=== PATIENT | male | born 1975 | race African-American/Black ===

== ENCOUNTER 2018-12-10 12:50 | Inpatient (IN) | payer BC ==
--- NOTE | 2018-12-10 14:43 | ER Document Report ---
ED Medical Screen (RME) - General Chief Complaint: Abdominal Pain Stated Complaint: ABDOMINAL PAIN Time Seen by Provider: 12/10/18 14:34 Primary Care Provider: HORTENCIA MONTALVO [Primary Care Provider] - Follow up as needed Notes: 33-year-old male presented to ED for right upper quadrant abdominal pain x3 days. He states he was nausea and vomiting on Monday but is not eating anything since then and has not had any vomiting or bowel movement since then. He states he has a history of diabetes type 2 . States he does smoke a half a pack occasionally drinks and smokes pot occasionally. I have greeted and performed a rapid initial assessment of this patient. A comprehensive ED assessment and evaluation of the patient, analysis of test results and completion of medical decision making process will be conducted by an additional ED providers. Dictation of this chart was performed using voice recognition software; therefore, there may be some unintended grammatical errors. TRAVEL OUTSIDE OF THE [place] IN LAST 30 DAYS: No Physical Exam - Vital signs Vitals: Temp Pulse Resp BP Pulse Ox 99.2 F 95 16 113/69 98 12/10/18 13:11 12/10/18 13:11 12/10/18 13:11 12/10/18 13:11 12/10/18 13:11 Course - Vital Signs Vital signs: Temp Pulse Resp BP Pulse Ox 99.2 F 95 16 113/69 98 12/10/18 13:11 12/10/18 13:11 12/10/18 13:11 12/10/18 13:11 12/10/18 13:11 Doctor's Discharge - Discharge Referrals: HORTENCIA MONTALVO [Primary Care Provider] - Follow up as needed
[2018-12-10] MEDS ORDERED: KETOROLAC TROMETHAMINE INJ/PF 30 MG/1 ML SDV IV ONE (15:12)
[2018-12-10] MEDS ORDERED: NORMAL SALINE 1000 ML 1,000 ML IV ONE (15:12)
--- NOTE | 2018-12-10 15:31 | RADIOLOGY REPORT (SQ) ---
EXAM DESCRIPTION: U/S ABDOMEN LTD W/DOPPLER COMPLETED DATE/TIME: 12/10/2018 3:21 pm REASON FOR STUDY: ruq abdominal pain COMPARISON: None. TECHNIQUE: Dynamic and static grayscale images acquired of the abdomen and recorded on PACS. Additio rene selected color Doppler and spectral images recorded. LIMITATIONS: None. FINDINGS: PANCREAS: No masses. Visualized pancreatic duct normal caliber. LIVER: No masses. Echotexture normal. LIVER VASCULATURE: Normal directional flow of the main portal vein and hepatic veins. GALLBLADDER: Gallstone(s). No pericholecystic fluid. No wall thickening. ULTRASOUND-DETECTED TORO'S SIGN: Negative. INTRAHEPATIC DUCTS AND COMMON DUCT: Common bile duct 9 mm. No intrahepatic biliary dilatation. INFERIOR VENA CAVA: Normal flow. AORTA: No aneurysm. RIGHT KIDNEY: Normal size. 1.5 cm cyst. No solid or suspicious masses. No hydronephrosis. No calcif ications. PERITONEAL AND RIGHT PLEURAL SPACE: No ascites or effusions. OTHER: No other significant findings. IMPRESSION: Cholelithiasis. Dilated common bile duct without visualized common bile duct stones. TECHNICAL DOCUMENTATION: JOB ID: [id number] [email or web address]- All Rights Reserved Reading location - IP/workstation name: [email or web address]
[2018-12-10] MEDS ORDERED: ONDANSETRON HCL INJ/PF 4 MG/2 ML SDV IV ONE (17:26)
--- NOTE | 2018-12-10 17:42 | ER Document Report ---
ED General - General Chief Complaint: Abdominal Pain Stated Complaint: ABDOMINAL PAIN Time Seen by Provider: 12/10/18 14:34 Primary Care Provider: HORTENCIA MONTALVO [NO LOCAL MD] - Follow up as needed TRAVEL OUTSIDE OF THE [place] IN LAST 30 DAYS: No - HPI Notes: Patient is a 43-year-old male that presents to the emergency department for chief complaint of right upper quadrant abdominal pain. Patient reports pain began 3 days ago and has been constant since onset. He states it seems to be getting gradually worse and is sharp in nature. He reports vomiting at onset of pain and has not had anything to eat over the last few days because he is scared he will vomit after eating. He states that the pain does get worse after drinking. He denies any radiation of his pain. He denies any relieving factors to his pain. Patient denies history of GERD or gallbladder issues in the past. He has not had any fevers or chills. Past Medical History: Diabetes Past Surgical History: Negative Social History: Daily tobacco. Occasional alcohol. Denies drug use Family History: Reviewed and noncontributory for presenting illness Allergies: Reviewed, see documented allergy list. REVIEW OF SYSTEMS: CONSTITUTIONAL : No fever No chills No diaphoresis No recent illness EENT: No vision changes No congestion No sore throat CARDIOVASCULAR: No chest pain No palpitations RESPIRATORY: No shortness of breath No cough No difficulty breathing GASTROINTESTINAL: abdominal pain nausea vomiting No diarrhea GENITOURINARY: No dysuria No hematuria No difficulty urinating MUSCULOSKELETAL: No back pain No leg pain No arm pain SKIN: No rashes No lesions LYMPHATIC: No swollen, enlarged glands. NEUROLOGICAL: No lightheadedness No headache No weakness No paresthesias PSYCHIATRIC: No anxiety No depression PHYSICAL EXAMINATION: Vital signs reviewed, nursing noted reviewed. GENERAL: Appears uncomfortable, well-nourished and in no acute distress. HEAD: Atraumatic, normocephalic. EYES: Eyes appear normal, extraocular movements intact, sclera anicteric, conjunctiva are normal. ENT: nares patent, oropharynx clear without exudates. Moist mucous membranes. NECK: Normal range of motion, supple without lymphadenopathy LUNGS: Breath sounds clear to auscultation bilaterally and equal. No wheezes rales or rhonchi. HEART: Regular rate and rhythm without murmurs ABDOMEN: Soft, right upper quadrant tenderness, positive Dietz sign, nor moactive bowel sounds. No rebound, guarding, or rigidity. No masses appreciated. EXTREMITIES: Nontender, good range of motion, no pitting or edema. NEUROLOGICAL: No focal neurological deficits. Moves all extremities spontaneously Motor and sensory grossly intact on exam. PSYCH: Normal mood, normal affect. SKIN: Warm, Dry, normal turgor, no rashes or lesions noted on exposed skin - Related Data Allergies/Adverse Reactions: avocado Allergy (Verified 12/10/18 17:03) banana Allergy (Verified 12/10/18 17:03) tropical fruit Allergy (Uncoded 12/10/18 17:03) Past Medical History - Social History Smoking Status: Current Every Day Smoker Frequency of alcohol use: Occasional Drug Abuse: Cocaine Family History: Reviewed & Not Pertinent Patient has suicidal ideation: No Patient has homicidal ideation: No Endocrine Medical History: Reports: Hx Diabetes Mellitus Type 2 - unmedicated Renal/ Medical History: Denies: Hx Peritoneal Dialysis Physical Exam - Vital signs Vitals: Temp Pulse Resp BP Pulse Ox 99.2 F 95 16 113/69 98 12/10/18 13:11 12/10/18 13:11 12/10/18 13:11 12/10/18 13:11 12/10/18 13:11 Course - Re-evaluation Re-evalutation: 12/10/18 17:42 Vitals reviewed. Nursing notes reviewed. Patient appears uncomfortable but did have symptomatic relief after Toradol. He does not want any further pain medication currently. He has been given fluids and Zofran for symptom medic management as well. Ultrasound shows cholelithiasis with ductal dilation however there is no stone visualized in the duct. He has no acute cholecystitis on ultrasound. Blood work is currently pending. 12/10/18 20:41 Patients care discussed with Dr. Siegel who states patient is requiring ERCP given his ductal dilation and elevated total bilirubin. He recommends transfer to outside facility. Care discussed with [facility] who is not currently excepting nonemergent patients. Patient care was then directed to Mo[facility] and I am currently awaiting a callback from their physician. Patient's pain is controlled at this time. He will be started on maintenance fluids and will remain n.p.o. Laboratory 12/10/18 12/10/18 12/10/18 16:33 16:33 19:00 WBC 14.8 H RBC 5.15 Hgb 15.6 Hct 46.3 MCV 90 MCH 30.2 MCHC 33.6 RDW 12.4 Plt Count 353 Seg Neutrophils % 82.7 H Lymphocytes % 6.5 L Monocytes % 9.9 Eosinophils % 0.8 Basophils % 0.1 Absolute Neutrophils 12.3 H Absolute Lymphocytes 1.0 Absolute Monocytes 1.5 H Absolute Eosinophils 0.1 Absolute Basophils 0.0 Sodium 136.6 L Potassium 4.1 Chloride 92 L Carbon Dioxide 30 Anion Gap 15 BUN 14 Creatinine 0.73 Est GFR ( Amer) > 60 Est GFR (Non-Af Amer) > 60 Glucose 239 H Calcium 9.6 Total Bilirubin 3.4 H Direct Bilirubin 0.9 H Neonat Total Bilirubin Not Reportable Neonat Direct Bilirubin Not Reportable Neonat Indirect Bili Not Reportable AST 35 ALT 45 Alkaline Phosphatase 134 H Total Protein 8.1 Albumin 4.4 Lipase 34.3 Urine Color ADINA Urine Appearance CLOUDY Urine pH 5.0 Ur Specific [place] 1.031 Urine Protein 30 H Urine Glucose (UA) >=500 H Urine Ketones 20 H Urine Blood NEGATIVE Urine Nitrite NEGATIVE Urine Bilirubin NEGATIVE Urine Urobilinogen 4.0 H Ur Leukocyte Esterase NEGATIVE Urine WBC (Auto) 5 Urine RBC (Auto) 3 Squamous Epi Cells Auto 3 Urine Mucus (Auto) MANY Urine Ascorbic Acid NEGATIVE Abdomen Ultrasound 12/10/18 14:35 IMPRESSION: Cholelithiasis. Dilated common bile duct without visualized common bile duct stones. 12/10/18 21:09 Patient's care was discussed with Dr. Adina Mary at [facility] who has accepted transfer and admission. - Vital Signs Vital signs: Temp Pulse Resp BP Pulse Ox 99.2 F 95 16 113/69 98 12/10/18 13:11 12/10/18 13:11 12/10/18 13:11 12/10/18 13:11 12/10/18 13:11 - Laboratory Result Diagrams: 12/10/18 16:33 12/10/18 16:33 Laboratory results interpreted by me: 12/10/18 12/10/18 12/10/18 16:33 16:33 19:00 WBC 14.8 H Seg Neutrophils % 82.7 H Lymphocytes % 6.5 L Absolute Neutrophils 12.3 H Absolute Monocytes 1.5 H Sodium 136.6 L Chloride 92 L Glucose 239 H Total Bilirubin 3.4 H Direct Bilirubin 0.9 H Alkaline Phosphatase 134 H Urine Protein 30 H Urine Glucose (UA) >=500 H Urine Ketones 20 H Urine Urobilinogen 4.0 H Discharge - Discharge Clinical Impression: Total bilirubin, elevated, RUQ abdominal pain Cholelithiasis Qualifiers: Cholelithiasis location: gallbladder Cholecystitis presence: without cholecystitis Biliary obstruction: without biliary obstruction Qualified Code(s): K80.20 - Calculus of gallbladder without cholecystitis without obstruction Condition: Stable Disposition: [facility] Referrals: LOCALMD,NO [NO LOCAL MD] - Follow up as needed
[2018-12-10 18:04] LABS: ABSOLUTE EOSINOPHILS # (AUTO) 0.1 10^3/uL (0.0-0.6); ABSOLUTE MONOCYTES (AUTO) 1.5 10^3/uL (0.1-1.4); ABSOLUTE NEUT (AUTO) 12.3 10^3/uL (1.7-8.2); BASOPHILS % (AUTO) 0.1 % (0-2); EOSINOPHILS % (AUTO) 0.8 % (0-6); HEMATOCRIT 46.3 % (37.9-51.0); HEMOGLOBIN 15.6 g/dL (13.5-17.0); LYMPHOCYTES % (AUTO) 6.5 % (13-45); MEAN CORPUSCULAR HEMOGLOBIN 30.2 pg (27.0-33.4); MEAN CORPUSCULAR HGB CONC 33.6 g/dL (32.0-36.0); MEAN CORPUSCULAR VOLUME 90 fl (80-97); MONOCYTES % (AUTO) 9.9 % (3-13); PLATELET COUNT 353 10^3/uL (150-450); RED BLOOD COUNT 5.15 10^6/uL (4.35-5.55); RED CELL DISTRIBUTION WIDTH 12.4 % (11.5-14.0); SEGMENTED NEUTROPHILS % (AUTO) 82.7 % (42-78); TOTAL CELLS COUNTED % (AUTO) 100 %; WHITE BLOOD COUNT 14.8 10^3/uL (4.0-10.5)
[2018-12-10 18:23] LABS: ALANINE AMINOTRANSFERASE 45 U/L (21-72); ALBUMIN 4.4 g/dL (3.5-5.0); ALKALINE PHOSPHATASE 134 U/L (38-126); ANION GAP 15 (5-19); ASPARTATE AMINO TRANSFERASE 35 U/L (17-59); BILIRUBIN,DIRECT 0.9 mg/dL (0.0-0.4); BILIRUBIN,TOTAL 3.4 mg/dL (0.2-1.3); BLOOD UREA NITROGEN 14 mg/dL (7-20); CALCIUM 9.6 mg/dL (8.4-10.2); CARBON DIOXIDE 30 mmol/L (22-30); CHLORIDE 92 mmol/L (98-107); GLUCOSE 239 mg/dL (75-110); LIPASE 34.3 U/L (23-300); POTASSIUM 4.1 mmol/L (3.6-5.0); SODIUM 136.6 mmol/L (137-145); TOTAL PROTEIN 8.1 g/dL (6.3-8.2)
[2018-12-10 19:52] LABS: APPEARANCE,URINE CLOUDY; BILIRUBIN,URINE NEGATIVE (NEGATIVE); COLOR,URINE AMBER; GLUCOSE, URINE >=500 mg/dL (NEGATIVE); KETONES,URINE 20 mg/dL (NEGATIVE); LEUKOCYTE ESTERASE,URINE NEGATIVE (NEGATIVE); NITRITE,URINE NEGATIVE (NEGATIVE); PROTEIN,URINE 30 mg/dL (NEGATIVE); URINE SPECIFIC GRAVITY 1.031
[2018-12-10] MEDS ORDERED: PIPERACILLIN/TAZOBACTAM 3.375 GM VIAL IV ONE (20:18)
[2018-12-10] MEDS ORDERED: NORMAL SALINE 1000 ML 2,000 ML IV ONE (20:43)
[2018-12-11] MEDS ORDERED: DEXTROSE 5%-1/2 NORMAL SALINE 1,000 ML IV ONE (10:08)
--- NOTE | 2018-12-11 10:27 | ER Document Report ---
ED General - General Chief Complaint: Abdominal Pain Stated Complaint: ABDOMINAL PAIN Time Seen by Provider: 12/10/18 14:34 Primary Care Provider: HORTENCIA MONTALVO [NO LOCAL MD] - Follow up as needed Notes: Patient has been in the ER now for quite some time. Set to be transferred for a ERCP. Patient states that he is hungry. His belly pain is mostly resolved. Review of his labs were performed. Since he has been in the ER for extended period of time I am repeating his labs. At this time I think patient would likely benefit from an MRCP versus transfer for an ERCP. In the event that the MRCP is positive then by all means we should proceed with the transfer however at this time I would like to repeat the labs and repeat the imaging studies as mentioned and proceed as planned. Review of systems: Constitutional: denies: Chills, Diaphoresis, Fever, Malaise, Weakness EENT: denies: Eye discharge, Blurred vision, Tearing, Double vision, Nose congestion, Nose discharge, Throat swelling, Mouth pain Cardiovascular: denies: Palpitations, Heart racing, Orthopnea, Dyspnea, Chest pain Respiratory: denies: Cough, Hurts to breathe, Wheezing, Shortness of breath Gastrointestinal: Complaining of epigastric and right upper quadrant abdominal pain. Nausea. Genitourinary: denies: Burning, Dysuria, Discharge, Frequency, Flank pain, Hematuria Musculoskeletal: denies: Joint pain, Joint swelling, Muscle pain, Muscle stiffness, back pain Hematologic/Lymphatic: denies: Anemia, Easy bleeding, Easy bruising, Blood clots Neurological/Psychological: denies: Confusion, Dementia, Depression, Loss of consciousness Skin: No lesions, no masses, no skin breakdown, no abscesses Physical exam: General: Alert no acute distress HEENT: Atraumatic, normocephalic, pupils equal round react to light and accommodation, extraocular muscles are intact, nose is non tender, posterior pharynx is without erythema or exudate. Tongue is unremarkable Heart: Heart with regular rate and rhythm, no murmurs, no rubs, no clicks Lungs: Lungs clear to auscultation bilaterally, no wheezes, rhonchi, rales Abdomen: Abdomen is soft, nontender, nondistended, normal bowel sounds Neuro: cranial nerves II through XII intact, reflexes intact, sensation intact, Extremities:Moving all extremities. Equal strength bilaterally in the upper lower extremities. No significant deformity Skin: No lesions. Skin intact Psych: Normal insight. Normal judgment Assessment and plan: 1. MRCP, repeat labs 2. Repeat labs are improving 3. If labs are improving, MRCP is negative then patient does not need to be transferred and will discharge with outpatient surgical follow-up. TRAVEL OUTSIDE OF THE [place] IN LAST 30 DAYS: No - Related Data Allergies/Adverse Reactions: avocado Allergy (Verified 12/10/18 17:03) banana Allergy (Verified 12/10/18 17:03) tropical fruit Allergy (Uncoded 12/10/18 17:03) Past Medical History - Social History Smoking Status: Current Every Day Smoker Frequency of alcohol use: Occasional Drug Abuse: Cocaine Family History: Reviewed & Not Pertinent Patient has suicidal ideation: No Patient has homicidal ideation: No Endocrine Medical History: Reports: Hx Diabetes Mellitus Type 2 - unmedicated Renal/ Medical History: Denies: Hx Peritoneal Dialysis Physical Exam - Vital signs Vitals: Temp Pulse Resp BP Pulse Ox 99.2 F 95 16 113/69 98 12/10/18 13:11 12/10/18 13:11 12/10/18 13:11 12/10/18 13:11 12/10/18 13:11 Course - Re-evaluation Re-evalutation: 12/11/18 14:12 MRCP results pending at time of signout at 1400. Patient signed over to Dr. Annmarie Howard for review of the MRCP results and transfer if still needed. More likely patient can be kept here as his bilirubin is trending down but will reconsult with surgery and disposition accordingly. I have ordered every 8 hours Zosyn to cover acute cholecystitis this is my more likely diagnosis. - Vital Signs Vital signs: Temp Pulse Resp BP Pulse Ox 98.4 F 79 16 102/55 L 100 12/11/18 07:07 12/11/18 07:07 12/11/18 07:07 12/11/18 07:07 12/11/18 07:07 - Laboratory Result Diagrams: 12/11/18 10:49 12/11/18 10:49 Laboratory results interpreted by me: 12/10/18 12/10/18 12/10/18 16:33 16:33 19:00 WBC 14.8 H Hgb Seg Neutrophils % 82.7 H Lymphocytes % 6.5 L Absolute Neutrophils 12.3 H Absolute Monocytes 1.5 H Sodium 136.6 L Chloride 92 L Glucose 239 H Total Bilirubin 3.4 H Direct Bilirubin 0.9 H Alkaline Phosphatase 134 H Albumin Urine Protein 30 H Urine Glucose (UA) >=500 H Urine Ketones 20 H Urine Urobilinogen 4.0 H 12/11/18 12/11/18 10:49 10:49 WBC 11.1 H Hgb 13.2 L D Seg Neutrophils % 79.4 H Lymphocytes % 8.7 L Absolute Neutrophils 8.8 H Absolute Monocytes Sodium Chloride Glucose 279 H Total Bilirubin 2.4 H Direct Bilirubin 0.5 H Alkaline Phosphatase 127 H Albumin 3.3 L Urine Protein Urine Glucose (UA) Urine Ketones Urine Urobilinogen Discharge - Discharge Clinical Impression: Total bilirubin, elevated, RUQ abdominal pain Cholelithiasis Qualifiers: Cholelithiasis location: gallbladder Cholecystitis presence: without cholecystitis Biliary obstruction: without biliary obstruction Qualified Code(s): K80.20 - Calculus of gallbladder without cholecystitis without obstruction Condition: Stable Disposition: [facility] [place] Referrals: LOCALMD,NO [NO LOCAL MD] - Follow up as needed
[2018-12-11 11:20] LABS: ABSOLUTE EOSINOPHILS # (AUTO) 0.3 10^3/uL (0.0-0.6); ABSOLUTE NEUT (AUTO) 8.8 10^3/uL (1.7-8.2); BASOPHILS % (AUTO) 0.4 % (0-2); EOSINOPHILS % (AUTO) 2.5 % (0-6); LYMPHOCYTES % (AUTO) 8.7 % (13-45); MEAN CORPUSCULAR HEMOGLOBIN 29.4 pg (27.0-33.4); MEAN CORPUSCULAR VOLUME 89 fl (80-97); PLATELET COUNT 276 10^3/uL (150-450); RED BLOOD COUNT 4.49 10^6/uL (4.35-5.55); RED CELL DISTRIBUTION WIDTH 12.3 % (11.5-14.0); SEGMENTED NEUTROPHILS % (AUTO) 79.4 % (42-78); TOTAL CELLS COUNTED % (AUTO) 100 %; WHITE BLOOD COUNT 11.1 10^3/uL (4.0-10.5)
[2018-12-11 11:30] LABS: HEMOGLOBIN 13.2 g/dL (13.5-17.0)
[2018-12-11 11:42] LABS: ALANINE AMINOTRANSFERASE 44 U/L (21-72); ALBUMIN 3.3 g/dL (3.5-5.0); ALKALINE PHOSPHATASE 127 U/L (38-126); ANION GAP 9 (5-19); ASPARTATE AMINO TRANSFERASE 29 U/L (17-59); BILIRUBIN,DIRECT 0.5 mg/dL (0.0-0.4); BILIRUBIN,TOTAL 2.4 mg/dL (0.2-1.3); BLOOD UREA NITROGEN 10 mg/dL (7-20); CALCIUM 8.8 mg/dL (8.4-10.2); CARBON DIOXIDE 30 mmol/L (22-30); CHLORIDE 100 mmol/L (98-107); GLUCOSE 279 mg/dL (75-110); LIPASE 99.8 U/L (23-300); POTASSIUM 3.6 mmol/L (3.6-5.0); SODIUM 138.5 mmol/L (137-145); TOTAL PROTEIN 6.3 g/dL (6.3-8.2)
[2018-12-11] MEDS ORDERED: PIPERACILLIN/TAZOBACTAM 3.375 GM VIAL IV SCH ×2 (14:15→17:45)
--- NOTE | 2018-12-11 14:48 | RADIOLOGY REPORT (SQ) ---
EXAM DESCRIPTION: MRI ABDOMEN WITHOUT COMPLETED DATE/TIME: 12/11/2018 2:09 pm REASON FOR STUDY: dilated CBD with elevated bili COMPARISON: Ultrasound from 1 day previously. TECHNIQUE: Noncontrast MRCP. Source and MIP images reviewed. LIMITATIONS: None. FINDINGS: GALLBLADDER: Distended but without pericholecystic fluid. Sizable gallstone within measur es at least 3 cm. INTRAHEPATIC DUCTS: Nondilated. EXTRAHEPATIC DUCTS: Common duct measures up to 8 mm. No stones or masses or strictures evident. PANCREAS: Generally homogeneous, no gross mass or significant signal alteration. No surrounding infl ammatory changes or fluid. Pancreatic duct is normal. LIVER, SPLEEN, KIDNEYS, ADRENALS: No significant abnormality. VESSELS: No evidence of aneurysm. Grossly appropriate flow voids in the major vascular structures. LUNG BASES: Grossly clear. OTHER: No other significant finding. IMPRESSION: 1. Cholelithiasis. 2. No evidence of choledocholithiasis. TECHNICAL DOCUMENTATION: JOB ID: [id number] [employer]- All Rights Reserved Reading location - IP/workstation name: [email or web address]
--- NOTE | 2018-12-11 16:46 | ER Document Report ---
Doctor's Note Notes: 12/11/18 16:45 Patient was seen and evaluated. He states his symptoms are significantly improved from yesterday. I reviewed blood work that was drawn this morning which shows improvement of his bilirubin as well as leukocytosis. Patient has been receiving his Zosyn which I believe is helping his symptoms. His abdomen i s still mildly tender in the right upper quadrant. MRCP was obtained this morning and shows cholelithiasis with no choledocholithiasis. I rediscussed his care with Dr. Siegel who will come evaluate him in the emergency room. We are still looking at a prolonged time for transfer to [facility]. Patient denies current needs and states pain is tolerable. 12/11/18 17:[address] Siegel who accepts patient for admission and plans to do cholecystectomy tomorrow. Patient in agreement with this plan of care.
--- NOTE | 2018-12-11 17:24 | PDOC H&P ---
History of Present Illness Admission Date/PCP: 12/12/18 Patient complains of: RUQ pain History of Present Illness: VIN CUENCA is a 43 year old male, healthy with a hx or RUQ pain. An US og the GB has been done and it is significant for mildly dilated CBC 8 mm, cholelithiasis, and no choledocholithiasis. An initial total bilirubin was 3.4 yesterday today is down to 2.4; similarly, the WBC was elevated yesterday 14K, down today to 11K. The reports improvement of the pain today. Past Medical History Endocrine Medical History: Reports: Diabetes Mellitus Type 2 - unmedicated Social History Smoking Status: Current Every Day Smoker Family History Family History: Reviewed & Not Pertinent Parental Family History Reviewed: No Children Family History Reviewed: No Sibling(s) Family History Reviewed.: No Medication/Allergy Allergies/Adverse Reactions: avocado Allergy (Verified 12/10/18 17:03) banana Allergy (Verified 12/10/18 17:03) tropical fruit Allergy (Uncoded 12/10/18 17:03) Physical Exam Vital Signs: Temp Pulse Resp BP Pulse Ox 98.4 F 79 16 102/55 L 100 12/11/18 07:07 12/11/18 07:07 12/11/18 07:07 12/11/18 07:07 12/11/18 07:07 Intake & Output 12/10/18 12/11/18 12/12/18 06:59 06:59 06:59 Intake Total 1000 2000 Balance 1000 2000 Weight 94.6 kg General appearance: PRESENT: no acute distress Head exam: PRESENT: atraumatic Eye exam: PRESENT: EOMI, PERRLA Mouth exam: PRESENT: moist, neck supple Neck exam: PRESENT: full ROM Respiratory exam: PRESENT: clear to auscultation alee Cardiovascular exam: PRESENT: RRR GI/Abdominal exam: PRESENT: soft, tenderness - RUQ Rectal exam: PRESENT: deferred Extremities exam: PRESENT: full ROM Musculoskeletal exam: PRESENT: full ROM Neurological exam: PRESENT: alert, altered Skin exam: PRESENT: warm Results Laboratory Results: 12/11/18 10:49 12/11/18 10:49 12/10/18 12/10/18 12/10/18 16:33 16:33 19:00 WBC 14.8 H RBC 5.15 Hgb 15.6 Hct 46.3 MCV 90 MCH 30.2 MCHC 33.6 RDW 12.4 Plt Count 353 Seg Neutrophils % 82.7 H Lymphocytes % 6.5 L Monocytes % 9.9 Eosinophils % 0.8 Basophils % 0.1 Absolute Neutrophils 12.3 H Absolute Lymphocytes 1.0 Absolute Monocytes 1.5 H Absolute Eosinophils 0.1 Absolute Basophils 0.0 Sodium 136.6 L Potassium 4.1 Chloride 92 L Carbon Dioxide 30 Anion Gap 15 BUN 14 Creatinine 0.73 Est GFR ( Amer) > 60 Est GFR (Non-Af Amer) > 60 Glucose 239 H Calcium 9.6 Total Bilirubin 3.4 H AST 35 ALT 45 Alkaline Phosphatase 134 H Total Protein 8.1 Albumin 4.4 Lipase 34.3 Urine Color ADINA Urine Appearance CLOUDY Urine pH 5.0 Ur Specific Levels 1.031 Urine Protein 30 H Urine Glucose (UA) >=500 H Urine Ketones 20 H Urine Blood NEGATIVE Urine Nitrite NEGATIVE Ur Leukocyte Esterase NEGATIVE Urine WBC (Auto) 5 Urine RBC (Auto) 3 12/11/18 12/11/18 10:49 10:49 WBC 11.1 H RBC 4.49 Hgb 13.2 L D Hct 40.0 MCV 89 MCH 29.4 MCHC 33.0 RDW 12.3 Plt Count 276 Seg Neutrophils % 79.4 H Lymphocytes % 8.7 L Monocytes % 9.0 Eosinophils % 2.5 Basophils % 0.4 Absolute Neutrophils 8.8 H Absolute Lymphocytes 1.0 Absolute Monocytes 1.0 Absolute Eosinophils 0.3 Absolute Basophils 0.0 Sodium 138.5 Potassium 3.6 Chloride 100 Carbon Dioxide 30 Anion Gap 9 BUN 10 Creatinine 0.54 Est GFR ( Amer) > 60 Est GFR (Non-Af Amer) > 60 Glucose 279 H Calcium 8.8 Total Bilirubin 2.4 H AST 29 ALT 44 Alkaline Phosphatase 127 H Total Protein 6.3 Albumin 3.3 L Lipase 99.8 Urine Color Urine Appearance Urine pH Ur Specific Levels Urine Protein Urine Glucose (UA) Urine Ketones Urine Blood Urine Nitrite Ur Leukocyte Esterase Urine WBC (Auto) Urine RBC (Auto) Impressions: Abdomen Ultrasound 12/10/18 14:35 IMPRESSION: Cholelithiasis. Dilated common bile duct without visualized common bile duct stones. Abdomen MRI 12/11/18 10:12 IMPRESSION: 1. Cholelithiasis. 2. No evidence of choledocholithiasis. Assessment & Plan - Diagnosis (1) Cholelithiasis Qualifiers: Cholelithiasis location: gallbladder Cholecystitis presence: without cholecystitis Biliary obstruction: without biliary obstruction Qualified Code(s): K80.20 - Calculus of gallbladder without cholecystitis without obstruction Is this a current diagnosis for this admission?: Yes (2) RUQ abdominal pain Is this a current diagnosis for this admission?: Yes (3) Total bilirubin, elevated Is this a current diagnosis for this admission?: Yes - Plan Summary Plan Summary: A/ Cholelithiasis, no choledocholithiasis despite elevation of total bilirubin Total bilirubin and WBC improved during past 24hr Slightly elevated Alk Phosph. US and MRCP demonstrate cholelithiasis only P/ Admit Clear liquid doiet NPO after midnight Plan laparoscopic cholecystectomy, possible open, possible cholangiogram tomorow Procedure risks, benefits, complications including bleeding from the liver and injury of the common bile duct which might require transfer to a tertiary center for open repa, he understands, and decides to proceed.
[2018-12-11] MEDS ORDERED: ONDANSETRON HCL INJ/PF 4 MG/2 ML SDV IV PRN (18:13)
[2018-12-11] MEDS ORDERED: DEXTROSE 50%-WATER 25 GM/50 ML DISP.SYRIN IV PRN ×2 (18:20)
[2018-12-11] MEDS ORDERED: GLUCAGON,HUMAN RECOMB 1 MG INJ SUBCUT PRN (18:20)
[2018-12-11] MEDS ORDERED: DEXTROSE 40% GEL 15 GM TUBE PO PRN ×2 (18:20)
[2018-12-11] MEDS: PIPERACILLIN SODIUM/TAZOBACTAM 3.375 GM in NORMAL SALINE 100 ML IV SCH (20:32)
[2018-12-11] MEDS: FAMOTIDINE INJ/PF 20 MG/2 ML SDV IV SCH (22:33)
[2018-12-12] MEDS: PIPERACILLIN SODIUM/TAZOBACTAM 3.375 GM in NORMAL SALINE 100 ML IV SCH ×4 (04:07→21:41)
[2018-12-12] MEDS: NORMAL SALINE 1000 ML 1,000 ML IV PRN ×2 (04:08→21:41)
[2018-12-12 06:09] LABS: ABSOLUTE EOSINOPHILS # (AUTO) 0.3 10^3/uL (0.0-0.6); ABSOLUTE LYMPHOCYTES (AUTO) 1.1 10^3/uL (0.5-4.7); ABSOLUTE MONOCYTES (AUTO) 1.3 10^3/uL (0.1-1.4); ABSOLUTE NEUT (AUTO) 9.5 10^3/uL (1.7-8.2); BASOPHILS % (AUTO) 0.3 % (0-2); EOSINOPHILS % (AUTO) 2.4 % (0-6); HEMATOCRIT 36.5 % (37.9-51.0); LYMPHOCYTES % (AUTO) 9.3 % (13-45); MEAN CORPUSCULAR HEMOGLOBIN 29.2 pg (27.0-33.4); MEAN CORPUSCULAR VOLUME 89 fl (80-97); MONOCYTES % (AUTO) 10.9 % (3-13); PLATELET COUNT 272 10^3/uL (150-450); RED BLOOD COUNT 4.12 10^6/uL (4.35-5.55); RED CELL DISTRIBUTION WIDTH 12.2 % (11.5-14.0); SEGMENTED NEUTROPHILS % (AUTO) 77.1 % (42-78); TOTAL CELLS COUNTED % (AUTO) 100 %; WHITE BLOOD COUNT 12.3 10^3/uL (4.0-10.5)
[2018-12-12 06:35] LABS: ALANINE AMINOTRANSFERASE 27 U/L (21-72); ALBUMIN 3.3 g/dL (3.5-5.0); ALKALINE PHOSPHATASE 102 U/L (38-126); ANION GAP 11 (5-19); ASPARTATE AMINO TRANSFERASE 13 U/L (17-59); BILIRUBIN,DIRECT 0.4 mg/dL (0.0-0.4); BILIRUBIN,TOTAL 1.8 mg/dL (0.2-1.3); BLOOD UREA NITROGEN 6 mg/dL (7-20); CALCIUM 8.6 mg/dL (8.4-10.2); CARBON DIOXIDE 25 mmol/L (22-30); CHLORIDE 101 mmol/L (98-107); GLUCOSE 263 mg/dL (75-110); POTASSIUM 4.1 mmol/L (3.6-5.0); SODIUM 137.4 mmol/L (137-145)
[2018-12-12] MEDS: FAMOTIDINE INJ/PF 20 MG/2 ML SDV IV SCH ×2 (09:52→22:52)
[2018-12-12] MEDS ORDERED: SUCCINYLCHOLINE CHLORIDE INJ 200 MG/10 ML VIAL ONE (13:30)
[2018-12-12] MEDS ORDERED: ROCURONIUM BROMIDE INJ 50 MG/5 ML VIAL IV ONE (13:30)
[2018-12-12] MEDS ORDERED: BUPIVACAINE HCL 0.25% /EPINEPHRINE INJ/PF 30 ML SDV ONE (13:56)
[2018-12-12] MEDS ORDERED: MIDAZOLAM 2 MG/2 ML INJ ONE (14:16)
[2018-12-12] MEDS ORDERED: FENTANYL CITRATE INJ/PF 100 MCG/2 ML AMPUL ONE (14:16)
[2018-12-12] MEDS ORDERED: PROPOFOL INJ 200 MG/20 ML VIAL IV ONE (14:16)
[2018-12-12] MEDS ORDERED: ONDANSETRON HCL INJ/PF 4 MG/2 ML SDV ONE (14:16)
[2018-12-12] MEDS ORDERED: DEXAMETHASONE SOD PHOSPHATE INJ 4 MG/1 ML VIAL ONE (14:16)
[2018-12-12] MEDS ORDERED: FENTANYL CITRATE INJ/PF 100 MCG/2 ML AMPUL IV PRN ×3 (15:10)
[2018-12-12] MEDS ORDERED: ONDANSETRON HCL INJ/PF 4 MG/2 ML SDV IV PRN (15:10)
[2018-12-12] MEDS ORDERED: MEPERIDINE HCL/PF INJ 25 MG/1 ML DISP.SYRIN IV PRN (15:10)
[2018-12-12] MEDS ORDERED: MORPHINE SULFATE 10 MG/ML INJ IV PRN (15:10)
[2018-12-12] MEDS ORDERED: OXYCODONE-ACETAMINOPHEN 5-325 MG TABLET PO PRN ×2 (15:10)
[2018-12-12] MEDS ORDERED: PROMETHAZINE HCL INJ 25 MG/1 ML VIAL IV PRN ×2 (15:10)
[2018-12-12] MEDS ORDERED: DIPHENHYDRAMINE HCL 50 MG/ML VIAL IV PRN (15:10)
[2018-12-12] MEDS: FENTANYL CITRATE INJ/PF 100 MCG/2 ML AMPUL ONE ×2 (17:05→17:10)
--- NOTE | 2018-12-12 18:09 | OPERATIVE REPORT E ---
Operative Report NAME: VIN CUENCA : 1975 AGE: 43Y DATE OF SURGERY: 12/12/2018 ROOM: 426 PREOPERATIVE DIAGNOSES: ACUTE CHOLECYSTITIS, CHOLELITHIASIS, AND ELEVATED LFTs. POSTOPERATIVE DIAGNOSES: ACUTE CHOLECYSTITIS, CHOLELITHIASIS, AND ELEVATED LFTs WITH ACUTE SUPPURATIVE CHOLECYSTITIS. OPERATION: Laparoscopic cholecystectomy. SURGEON: HIMANSHU JOHNSON M.D. ANESTHESIA: General. INDICATION: This is a 44-year-old male who claims he had pains in the abdomen for the past 3 to 4 days. He went to the ED yesterday and noted to have thickened gallbladder wall with a large gallstone. All his liver functions came down to almost normal today. Also his pain is a little improved, although his white count is still slightly elevated, slightly more than yesterday. DESCRIPTION OF PROCEDURE: After general anesthesia the patient was placed in the supine position and the abdomen prepped and draped in the usual sterile fashion. The patient's heart rate was noted to be elevated about 117 per minute and the patient appeared to be dehydrated and given at least a liter of IV fluids with the heart rate coming down to the 80s. The abdomen was then prepped and draped in the usual sterile fashion. Appropriate timeout was called. Next an infraumbilical incision made and the fascia identified and grasped with Sotero clamps on each side and divided in the middle. The fascia was then digitally inspected and further down into the abdominal cavity with no evidence of adhesions. Next, Nolan trocar was then inserted through the fascia into the abdominal cavity and CO2 insufflated to a pressure of 15 mmHg. Two sutures of 0-Vicryl were placed on each side of the trocars and the trocars were released. Next, 3 other trocars were placed under direct vision at 12 mm in the subxiphoid and two 5 mm in the right upper quadrant. The gallbladder was then inspected and noted to be markedly covered with adhesions. These adhesions were bluntly lysed and the gallbladder noted to be very tense and quite thickened. The gallbladder was then partially amputated with bile through a long needle. An area of the mid part of the gallbladder was inadvertently punctured with a Maryland dissector, which extruded some initially clear bile and later on purulent material. Cultures were obtained. The tip of the gallbladder was allowed to be grasped and pulled up on the liver. The cystic duct area was then dissected. There was a lot of thickened adhesions. The gallbladder was partially dissected posteriorly with the use of the Harmonic maral. There appeared to be a small opening in the area of the gallbladder and the cystic duct, which was bluntly dissected. The common hepatic duct was noted to be quite dilated. There appears to be a very short cystic duct, maybe about 5 mm long. This was subsequently clipped with hemoclip twice close to the main bile duct and the gallbladder opened and divided distal to the clips. The cystic duct noted to be relatively small in diameter. This area was subsequently grasped with a grasper. The hepatic duct noted to be adherent to the gallbladder, which was inflamed. This was bluntly dissected off the gallbladder. The hepatic duct noted to be also somewhat dilated. The patient did have a previous MRCP, which showed no common bile duct stone and the patient possibly passed a small gallstone. The cystic artery was not well visualized and likely divided and cauterized with the use of Harmonic maral. The gallbladder was then dissected off the liver bed, primarily by shaving the wall of the thickened gallbladder or peeling it primarily with the use of the Maryland dissector and Harmonic maral. The gallbladder was inadvertently opened and some small stones extruded out into the abdominal cavity. The gallbladder was then completely removed from the liver bed and placed in an Endobag and pulled out through the umbilical port. The umbilical port needed to be enlarged about 5 mm with the use of scissors. The gallbladder was noted to be thickened with a large stone of at least 2 cm diameter. Next, Nolan trocar was then put back and some of the stones extruded out where then retrieved and pulled out. Irrigation of the liver bed was further performed since there was a considerable amount of bile with purulence. At least 4 liters of saline was used. No evidence of active bleeding noted in the liver bed. Next, a Stalin tube about 15 Italian was then threaded through the lower most trocar site and pulled out into the liver bed. It was laid down into the liver bed and anchored to the skin with 2-0 Silk. All the trocars were then removed and CO2 allowed to come out of the trocar sites. Fascial defect was then closed with a [id number] suture using 0-Vicryl x2 and stay sutures tied together. Anesthesia infiltrated over the fascia. Next, all the skin incisions closed with running subcuticular 4-0 Vicryl and tied. Sterile dressing was placed over the operating sites. Needle, instrument, and sponge count were all correct. Estimated blood loss about 20 mL. DICTATING PHYSICIAN: HIMANSHU JOHNSON M.D. [id number] PHY#: [id number] ID: [id number] JOB#: [id number] ACCT: [id number] cc:HIMANSHU JOHNSON M.D. >
[2018-12-12] MEDS: MORPHINE SULFATE 10 MG/ML INJ IV PRN ×2 (18:11→22:51)
[2018-12-13] MEDS: PIPERACILLIN SODIUM/TAZOBACTAM 3.375 GM in NORMAL SALINE 100 ML IV SCH ×4 (03:52→22:02)
[2018-12-13] MEDS: ACETAMINOPHEN 325 MG TABLET PO PRN (04:44)
[2018-12-13] MEDS: MORPHINE SULFATE 10 MG/ML INJ IV PRN ×3 (05:51→15:56)
[2018-12-13] MEDS: NORMAL SALINE 1000 ML 1,000 ML IV PRN (08:09)
[2018-12-13 10:01] LABS: ABSOLUTE LYMPHOCYTES (AUTO) 1.3 10^3/uL (0.5-4.7); ABSOLUTE NEUT (AUTO) 12.7 10^3/uL (1.7-8.2); BASOPHILS % (AUTO) 0.1 % (0-2); HEMOGLOBIN 12.2 g/dL (13.5-17.0); LYMPHOCYTES % (AUTO) 8.1 % (13-45); MEAN CORPUSCULAR HEMOGLOBIN 29.5 pg (27.0-33.4); MEAN CORPUSCULAR HGB CONC 32.9 g/dL (32.0-36.0); MEAN CORPUSCULAR VOLUME 90 fl (80-97); MONOCYTES % (AUTO) 12.3 % (3-13); PLATELET COUNT 333 10^3/uL (150-450); RED BLOOD COUNT 4.13 10^6/uL (4.35-5.55); RED CELL DISTRIBUTION WIDTH 12.7 % (11.5-14.0); SEGMENTED NEUTROPHILS % (AUTO) 79.5 % (42-78); TOTAL CELLS COUNTED % (AUTO) 100 %
[2018-12-13 10:17] LABS: ALANINE AMINOTRANSFERASE 41 U/L (21-72); ALBUMIN 2.9 g/dL (3.5-5.0); ALKALINE PHOSPHATASE 94 U/L (38-126); ANION GAP 11 (5-19); ASPARTATE AMINO TRANSFERASE 29 U/L (17-59); BILIRUBIN,DIRECT 0.5 mg/dL (0.0-0.4); BILIRUBIN,TOTAL 2.1 mg/dL (0.2-1.3); BLOOD UREA NITROGEN 7 mg/dL (7-20); CALCIUM 8.7 mg/dL (8.4-10.2); CARBON DIOXIDE 24 mmol/L (22-30); CHLORIDE 102 mmol/L (98-107); GLUCOSE 239 mg/dL (75-110); LIPASE 18.2 U/L (23-300); POTASSIUM 4.1 mmol/L (3.6-5.0); SODIUM 136.6 mmol/L (137-145); TOTAL PROTEIN 5.8 g/dL (6.3-8.2)
--- NOTE | 2018-12-13 10:26 | PDOC PROGRESS REPORT ---
Subjective Progress Note for:: 12/13/18 Subjective:: incisional pains. Pains pre-op have subsided Reason For Visit: SYMPTOMATIC CHOLELITHIASIS WITH HYPERBILIRU Physical Exam Vital Signs: Temp Pulse Resp BP Pulse Ox 101.3 F H 86 19 145/71 H 98 12/12/18 23:39 12/12/18 23:39 12/12/18 19:13 12/12/18 23:39 12/12/18 23:39 Intake & Output 12/12/18 12/13/18 12/14/18 06:59 06:59 06:59 Intake Total 2580 7385 1000 Output Total 4475 Balance 2580 2910 1000 Weight 94.5 kg 54.6 kg Exam: low grade fever last night Abdomen is soft with mild tenderness along incision sites Results Laboratory Results: 12/13/18 09:36 12/13/18 09:36 12/13/18 12/13/18 09:36 09:36 WBC 16.0 H RBC 4.13 L Hgb 12.2 L Hct 37.0 L MCV 90 MCH 29.5 MCHC 32.9 RDW 12.7 Plt Count 333 Seg Neutrophils % 79.5 H Lymphocytes % 8.1 L Monocytes % 12.3 Eosinophils % 0.0 Basophils % 0.1 Absolute Neutrophils 12.7 H Absolute Lymphocytes 1.3 Absolute Monocytes 2.0 H Absolute Eosinophils 0.0 Absolute Basophils 0.0 Sodium 136.6 L Potassium 4.1 Chloride 102 Carbon Dioxide 24 Anion Gap 11 BUN 7 Creatinine 0.61 Est GFR ( Amer) > 60 Est GFR (Non-Af Amer) > 60 Glucose 239 H Calcium 8.7 Total Bilirubin 2.1 H AST 29 ALT 41 Alkaline Phosphatase 94 Total Protein 5.8 L Albumin 2.9 L Lipase 18.2 L Impressions: Abdomen Ultrasound 12/10/18 14:35 IMPRESSION: Cholelithiasis. Dilated common bile duct without visualized common bile duct stones. Abdomen MRI 12/11/18 10:12 IMPRESSION: 1. Cholelithiasis. 2. No evidence of choledocholithiasis. Assessment & Plan - Time Time Spent with patient: 15-24 minutes - Inpatient Certification Medical Necessity: Need for Pain Control, Need for IV Antibiotics - Plan Summary Plan Summary: His LFT's are essentially normal. Mild elevation of TB 2.1 WBC is 16K Plan: 1) Reg diet 2) Continue IV antibiotics 24-48 hrs 3) Leave drain another 24 hrs 4) Ambulate
[2018-12-13] MEDS: FAMOTIDINE INJ/PF 20 MG/2 ML SDV IV SCH ×2 (11:16→22:03)
[2018-12-14] MEDS: MORPHINE SULFATE 10 MG/ML INJ IV PRN (01:59)
[2018-12-14] MEDS: PIPERACILLIN SODIUM/TAZOBACTAM 3.375 GM in NORMAL SALINE 100 ML IV SCH ×4 (02:00→20:13)
[2018-12-14 06:16] LABS: ABSOLUTE BASOPHILS # (AUTO) 0.1 10^3/uL (0.0-0.2); ABSOLUTE LYMPHOCYTES (AUTO) 1.2 10^3/uL (0.5-4.7); ABSOLUTE MONOCYTES (AUTO) 2.1 10^3/uL (0.1-1.4); ABSOLUTE NEUT (AUTO) 14.6 10^3/uL (1.7-8.2); BASOPHILS % (AUTO) 0.5 % (0-2); HEMATOCRIT 35.6 % (37.9-51.0); HEMOGLOBIN 11.5 g/dL (13.5-17.0); LYMPHOCYTES % (AUTO) 6.9 % (13-45); MEAN CORPUSCULAR HGB CONC 32.4 g/dL (32.0-36.0); MEAN CORPUSCULAR VOLUME 90 fl (80-97); MONOCYTES % (AUTO) 11.4 % (3-13); PLATELET COUNT 289 10^3/uL (150-450); RED BLOOD COUNT 3.98 10^6/uL (4.35-5.55); RED CELL DISTRIBUTION WIDTH 12.2 % (11.5-14.0); SEGMENTED NEUTROPHILS % (AUTO) 81.2 % (42-78); TOTAL CELLS COUNTED % (AUTO) 100 %
[2018-12-14] MEDS ORDERED: KETOROLAC TROMETHAMINE INJ/PF 30 MG/1 ML SDV IV SCH (09:15)
--- NOTE | 2018-12-14 09:15 | PDOC PROGRESS REPORT ---
Subjective Progress Note for:: 12/14/18 Reason For Visit: SYMPTOMATIC CHOLELITHIASIS WITH HYPERBILIRU Physical Exam Vital Signs: Temp Pulse Resp BP Pulse Ox 100.9 F H 99 16 141/72 H 97 12/13/18 20:00 12/13/18 20:00 12/13/18 20:00 12/13/18 20:00 12/13/18 20:00 Intake & Output 12/13/18 12/14/18 12/15/18 06:59 06:59 06:59 Intake Total 7385 1500 Output Total 4475 400 Balance 2910 1100 Weight 54.6 kg 54.4 kg General appearance: PRESENT: mild distress Head exam: PRESENT: normocephalic Eye exam: PRESENT: EOMI Mouth exam: PRESENT: moist Neck exam: PRESENT: full ROM Respiratory exam: PRESENT: clear to auscultation alee Cardiovascular exam: PRESENT: RRR Pulses: PRESENT: normal radial pulses, normal femoral pulses Vascular exam: PRESENT: normal capillary refill GI/Abdominal exam: PRESENT: soft, tenderness Rectal exam: PRESENT: deferred Extremities exam: PRESENT: full ROM Musculoskeletal exam: PRESENT: full ROM Neurological exam: PRESENT: alert, awake, oriented to person, oriented to place Psychiatric exam: PRESENT: appropriate affect Skin exam: PRESENT: dry Results Laboratory Results: 12/14/18 05:26 12/13/18 09:36 12/13/18 12/13/18 12/14/18 09:36 09:36 05:26 WBC 16.0 H 18.0 H RBC 4.13 L 3.98 L Hgb 12.2 L 11.5 L Hct 37.0 L 35.6 L MCV 90 90 MCH 29.5 29.0 MCHC 32.9 32.4 RDW 12.7 12.2 Plt Count 333 289 Seg Neutrophils % 79.5 H 81.2 H Lymphocytes % 8.1 L 6.9 L Monocytes % 12.3 11.4 Eosinophils % 0.0 0.0 Basophils % 0.1 0.5 Absolute Neutrophils 12.7 H 14.6 H Absolute Lymphocytes 1.3 1.2 Absolute Monocytes 2.0 H 2.1 H Absolute Eosinophils 0.0 0.0 Absolute Basophils 0.0 0.1 Sodium 136.6 L Potassium 4.1 Chloride 102 Carbon Dioxide 24 Anion Gap 11 BUN 7 Creatinine 0.61 Est GFR ( Amer) > 60 Est GFR (Non-Af Amer) > 60 Glucose 239 H Calcium 8.7 Total Bilirubin 2.1 H AST 29 ALT 41 Alkaline Phosphatase 94 Total Protein 5.8 L Albumin 2.9 L Lipase 18.2 L Impressions: Abdomen Ultrasound 12/10/18 14:35 IMPRESSION: Cholelithiasis. Dilated common bile duct without visualized common bile duct stones. Abdomen MRI 12/11/18 10:12 IMPRESSION: 1. Cholelithiasis. 2. No evidence of choledocholithiasis. Assessment & Plan - Plan Summary Plan Summary: pt appears sedated due to narcotics still with some ruq "spasms" will decrease narcotics add toradol and tylenol trend wbc cont clears (pt request)
[2018-12-14] MEDS: FAMOTIDINE INJ/PF 20 MG/2 ML SDV IV SCH ×2 (09:54→21:14)
[2018-12-14] MEDS: ACETAMINOPHEN INJ/PF 1000 MG/100 ML SDV IV SCH ×3 (12:36→23:51)
[2018-12-14] MEDS: NORMAL SALINE 1000 ML 1,000 ML IV PRN (20:16)
[2018-12-15] MEDS: PIPERACILLIN SODIUM/TAZOBACTAM 3.375 GM in NORMAL SALINE 100 ML IV SCH ×4 (04:36→21:51)
[2018-12-15] MEDS: ACETAMINOPHEN INJ/PF 1000 MG/100 ML SDV IV SCH ×3 (06:16→18:53)
[2018-12-15 08:17] LABS: ABSOLUTE BASOPHILS # (AUTO) 0.1 10^3/uL (0.0-0.2); ABSOLUTE EOSINOPHILS # (AUTO) 0.1 10^3/uL (0.0-0.6); ABSOLUTE LYMPHOCYTES (AUTO) 1.1 10^3/uL (0.5-4.7); ABSOLUTE MONOCYTES (AUTO) 1.3 10^3/uL (0.1-1.4); ABSOLUTE NEUT (AUTO) 13.2 10^3/uL (1.7-8.2); BASOPHILS % (AUTO) 0.3 % (0-2); EOSINOPHILS % (AUTO) 0.9 % (0-6); HEMATOCRIT 34.8 % (37.9-51.0); HEMOGLOBIN 11.5 g/dL (13.5-17.0); MEAN CORPUSCULAR HEMOGLOBIN 29.6 pg (27.0-33.4); MEAN CORPUSCULAR VOLUME 90 fl (80-97); MONOCYTES % (AUTO) 8.5 % (3-13); PLATELET COUNT 400 10^3/uL (150-450); RED BLOOD COUNT 3.88 10^6/uL (4.35-5.55); RED CELL DISTRIBUTION WIDTH 12.4 % (11.5-14.0); SEGMENTED NEUTROPHILS % (AUTO) 83.3 % (42-78); TOTAL CELLS COUNTED % (AUTO) 100 %; WHITE BLOOD COUNT 15.9 10^3/uL (4.0-10.5)
--- NOTE | 2018-12-15 08:57 | PDOC PROGRESS REPORT ---
Subjective Progress Note for:: 12/15/18 Subjective:: less pains, more ambulatory Reason For Visit: ACUTE SUPPERATIVE CHOLECYSTITIS Physical Exam Vital Signs: Temp Pulse Resp BP Pulse Ox 99.2 F 73 18 129/65 H 98 12/14/18 23:12 12/14/18 23:12 12/14/18 23:12 12/14/18 23:12 12/14/18 23:12 Intake & Output 12/14/18 12/15/18 12/16/18 06:59 06:59 06:59 Intake Total 1500 1020 Output Total 400 Balance 1100 1020 Weight 54.4 kg 97.6 kg Exam: Drainage from drain decreasing Abdomen is soft Results Laboratory Results: 12/15/18 07:37 12/13/18 09:36 12/15/18 07:37 WBC 15.9 H RBC 3.88 L Hgb 11.5 L Hct 34.8 L MCV 90 MCH 29.6 MCHC 33.0 RDW 12.4 Plt Count 400 Seg Neutrophils % 83.3 H Lymphocytes % 7.0 L Monocytes % 8.5 Eosinophils % 0.9 Basophils % 0.3 Absolute Neutrophils 13.2 H Absolute Lymphocytes 1.1 Absolute Monocytes 1.3 Absolute Eosinophils 0.1 Absolute Basophils 0.1 Impressions: Abdomen Ultrasound 12/10/18 14:35 IMPRESSION: Cholelithiasis. Dilated common bile duct without visualized common bile duct stones. Abdomen MRI 12/11/18 10:12 IMPRESSION: 1. Cholelithiasis. 2. No evidence of choledocholithiasis. Assessment & Plan - Time Time Spent with patient: 15-24 minutes - Inpatient Certification Medical Necessity: Need for IV Antibiotics - Plan Summary Plan Summary: WBC is trending down Will continue IV antibiotics for another 24-48 hrs Leave drain for now.
[2018-12-15] MEDS: FAMOTIDINE INJ/PF 20 MG/2 ML SDV IV SCH ×2 (10:59→21:52)
[2018-12-15] MEDS: NORMAL SALINE 1000 ML 1,000 ML IV PRN (11:04)
[2018-12-15] MEDS: ACETAMINOPHEN 325 MG TABLET PO PRN (16:39)
[2018-12-16] MEDS: PIPERACILLIN SODIUM/TAZOBACTAM 3.375 GM in NORMAL SALINE 100 ML IV SCH ×2 (04:10→09:26)
[2018-12-16 05:27] LABS: ABSOLUTE EOSINOPHILS # (AUTO) 0.2 10^3/uL (0.0-0.6); ABSOLUTE LYMPHOCYTES (AUTO) 1.3 10^3/uL (0.5-4.7); ABSOLUTE MONOCYTES (AUTO) 1.4 10^3/uL (0.1-1.4); ABSOLUTE NEUT (AUTO) 10.1 10^3/uL (1.7-8.2); BASOPHILS % (AUTO) 0.3 % (0-2); EOSINOPHILS % (AUTO) 1.4 % (0-6); HEMATOCRIT 32.7 % (37.9-51.0); HEMOGLOBIN 10.7 g/dL (13.5-17.0); LYMPHOCYTES % (AUTO) 9.9 % (13-45); MEAN CORPUSCULAR HEMOGLOBIN 28.9 pg (27.0-33.4); MEAN CORPUSCULAR HGB CONC 32.7 g/dL (32.0-36.0); MEAN CORPUSCULAR VOLUME 88 fl (80-97); MONOCYTES % (AUTO) 10.6 % (3-13); PLATELET COUNT 396 10^3/uL (150-450); RED CELL DISTRIBUTION WIDTH 12.3 % (11.5-14.0); SEGMENTED NEUTROPHILS % (AUTO) 77.8 % (42-78); TOTAL CELLS COUNTED % (AUTO) 100 %
[2018-12-16] MEDS: FAMOTIDINE INJ/PF 20 MG/2 ML SDV IV SCH (09:26)
[2018-12-16 13:01] VITALS: BP 141/72
--- NOTE | 2019-01-07 11:51 | DISCHARGE SUMMARY E ---
Discharge Summary NAME: VIN CUENCA : 1975 AGE: 43Y ADMITTED: 12/13/2018 DISCHARGED: 12/16/2018 PROCEDURE DONE: 12/12/18; laparoscopic cholecystectomy. FINAL DIAGNOSIS: 1. Acute and chronic cholecystitis. 2. Cholelithiasis. 3. Diabetes mellitus, type-2. HOSPITAL COURSE: This is a 43-year-old male complaining of right upper quadrant pains. He was seen in the ED on 12/10/18 where an ultrasound of the gallbladder was done which showed gallstones with slightly dilated common bile duct. He then underwent an MRCP which showed cholelithiasis but no choledocholithiasis with a common bile duct about 8 mm. His LFTs were slightly elevated but noted to be trending down. His total and direct bilirubin were also elevated on admission and noted to be trending down on the day of surgery. Patient then underwent laparoscopic cholecystectomy on 12/12/18. He gradually improved on IV antibiotics. His white count was elevated to 18,000 around the third postop day but gradually came down to 13 on 12/16/18. He is tolerating a regular diet on the day of discharge and the drain was removed. He was then discharged on p.o. clindamycin for the next 7 days. Cultures showed streptococcus sensitive to clindamycin. He was discharged improved on 12/16/18 with the above final diagnosis. Patient to be followed up in the surgical clinic in about 10 days. He is to continue clindamycin for the next week. Advised not to do any lifting more than 10 to 15 pounds for the next 2 weeks. DICTATING PHYSICIAN: HIMANSHU JOHNSON M.D. [id number] PHY#: [id number] ID: [id number] JOB#: [id number] ACCT: [id number] cc:Neema MELTON M.D. >
== END 2018-12-16 13:38 | disposition home or self-care (01) | DRG 419 ==
LOC: ER 12:50 → INTOOBSV 12-11 17:55 → EH 12-11 17:55 → 4S 12-11 20:49 → OBSVTOIN 12-13 10:00 → INTOOBSV 12-14 10:00
PROVIDERS: ADMIT Surgery; ATTEND Surgery
PROC: 0FT44ZZ Resection of Gallbladder, Percutaneous Endoscopic Approach (ICD-10-PCS; principal; 2018-12-12 14:15)
DX: K80.12 Calculus of gallbladder with acute and chronic cholecystitis without obstruction (principal); E11.9 Type 2 diabetes mellitus without complications; F17.200 Nicotine dependence, unspecified, uncomplicated; Z91.018 Allergy to other foods
CPT/HCPCS: 36415; 74181; 76705; 790; 80053; 81001; 82962; 83690; 85025; 87070; 87075; 87077; 87186; 87205; 88304; 93976; 96361; 96374; 96375; 99285; G0378; J0131; J0330; J1100; J1885; J2250; J2270; J2405; J2543; J2704; J3010; J3490; J7030; J7050; S0028

== ENCOUNTER 2020-02-28 06:49 | Inpatient (IN) | payer BC ==
[2020-02-28] MEDS ORDERED: MIDAZOLAM 2 MG/2 ML INJ IV ONE (09:11)
[2020-02-28] MEDS ORDERED: ONDANSETRON HCL INJ/PF 4 MG/2 ML SDV IV ONE (09:11)
[2020-02-28] MEDS ORDERED: FENTANYL CITRATE INJ/PF 100 MCG/2 ML AMPUL IV ONE (09:11)
--- NOTE | 2020-02-28 09:11 | ER Document Report ---
ED General - General Chief Complaint: Shortness Of Breath Stated Complaint: SHORTNESS OF BREATH,CONGESTION,COUGH Notes: Patient is a 45-year-old -[place] male with a history of diabetes, untreated who presents to the emergency department the chief complaint of shortness of breath and discomfort in the right upper chest wall that began yesterday. He states he was using some cleaning materials to mop and clean with his . He states he took a break and sat down on the floor landing on his right arm. He states he had a couple episodes of cough and then suddenly had a sensation of shortness of breath and discomfort in the right upper chest wall. States this persisted since yesterday so he decided to come today for evaluation. He denies any recent travel or known sick contacts. No fever. He has a slight ongoing cough. He is a current everyday smoker of a pack every other day. Been smoking since about 19 years old. Denies any trauma or injury. No hemoptysis. TRAVEL OUTSIDE OF THE [place] IN LAST 30 DAYS: No - Related Data Allergies/Adverse Reactions: avocado Allergy (Verified 12/10/18 17:03) banana Allergy (Verified 12/10/18 17:03) tropical fruit Allergy (Uncoded 12/10/18 17:03) Home Medications: No medications for diabetes. Past Medical History - Social History Smoking Status: Current Every Day Smoker Frequency of alcohol use: Occasional Drug Abuse: Marijuana Family History: Reviewed & Not Pertinent Patient has homicidal ideation: No - Past Medical History Cardiac Medical History: Denies: Hx Congestive Heart Failure, Hx Heart Attack, Hx Hypertension Pulmonary Medical History: Denies: Hx Asthma, Hx Bronchitis, Hx COPD, Hx Pneumonia, Hx Tuberculosis Neurological Medical History: Denies: Hx Seizures, Hx Parkinson's Disease Endocrine Medical History: Reports: Hx Diabetes Mellitus Type 2 - unmedicated Renal/ Medical History: Denies: Hx Benign Prostatic Hyperplasia, Hx End Stage Renal Disease, Hx Kidney Stones, Hx Peritoneal Dialysis GI Medical History: Denies: Hx Cirrhosis, Hx Gastroesophageal Reflux Disease, Hx Ulcer Musculoskeletal Medical History: Denies Hx Arthritis, Denies Hx Multiple Sclerosis Psychiatric Medical History: Denies: Hx Bipolar Disorder, Hx Depression, Hx Schizophrenia Review of Systems - Review of Systems Constitutional: denies: Fever EENT: denies: Throat pain, Difficulty swallowing Cardiovascular: Chest pain Respiratory: Short of breath Gastrointestinal: denies: Abdominal pain Genitourinary: denies: Pain Musculoskeletal: denies: Neck pain Skin: denies: Change in color Hematologic/Lymphatic: denies: Easy bruising Neurological/Psychological: denies: Headaches Physical Exam - Vital signs Vitals: Temp Pulse Resp BP Pulse Ox 97.9 F 77 16 147/84 H 97 02/28/20 07:03 02/28/20 07:03 02/28/20 07:03 02/28/20 07:03 02/28/20 07:03 - General General appearance: Appears well, Alert In distress: None - HEENT Head: Normocephalic, Atraumatic Eyes: Normal Pupils: PERRL Pharynx: Normal Neck: Normal - Respiratory Chest status: Nontender Breath sounds: Other - Absent breath sounds on the right Chest palpation: Normal - Cardiovascular Rhythm: Regular Heart sounds: Normal auscultation - Extremities General upper extremity: Normal inspection, Nontender, Normal color, Normal ROM, Normal temperature General lower extremity: Normal inspection, Nontender, Normal color, Normal ROM, Normal temperature, Normal weight bearing. No: Sharla's sign - Neurological Neuro grossly intact: Yes Cognition: Normal Orientation: AAOx4 - Psychological Associated symptoms: Normal affect, Normal mood - Skin Skin Temperature: Warm Skin Moisture: Dry Skin Color: Normal Course - Re-evaluation Re-evalutation: 02/28/20 09:10 X-ray showing a significant pneumothorax on the right. Patient is in no obvious distress, room air oxygen saturation 97%. Discussed with Dr. Rush who also evaluated the patient at bedside. He is immediately moved to the trauma room and set up for chest tube placement. Patient has signed consent and agrees with plan of care. 02/28/20 10:20 Status post chest tube placement by Dr. Rush with my assistance, positive breath sounds bilaterally. X-ray confirming placement and resolution of right pneumothorax. Will consult surgery. 02/28/20 10:21 Refer to note by Dr. Rush. 02/28/20 10:55 Page out has been placed to Dr. Bucio at 10 AM. Unable to reach him at that time. Aboriginal Education Teacher has called his cell phone and left a message for return call. It is possible that he is in the middle of her procedure. Will await his return call for consult. Patient is stable. - Vital Signs Vital signs: Temp Pulse Resp BP Pulse Ox 97.4 F 70 20 154/92 H 100 02/28/20 15:02 02/28/20 15:02 02/28/20 15:02 02/28/20 15:02 02/28/20 15:02 - Laboratory Result Diagrams: 02/28/20 16:14 02/28/20 09:10 Laboratory results interpreted by me: 02/28/20 02/28/20 02/28/20 09:10 09:10 09:12 WBC 11.9 H Absolute Neuts (auto) 9.0 H Carbonic Acid ABG pCO2 ABG pO2 ABG HCO3 ABG Total CO2 ABG O2 Saturation Sodium 136.8 L Glucose 401 H* POC Glucose 410 H* 02/28/20 09:14 WBC Absolute Neuts (auto) Carbonic Acid 1.43 H ABG pCO2 47.5 H ABG pO2 262.7 H ABG HCO3 26.1 H ABG Total CO2 27.5 H ABG O2 Saturation 99.6 H Sodium Glucose POC Glucose Procedures - Chest Tube Right Midaxillary Time completed: 09:54 Consent obtained: Yes Chest tube pre-insertion: Sterile PPE donned, Chloraprep applied Size of Burkinan Tube (cm): 24 Anesthetic type: 1% Lidocaine mL's of anesthetic: 20 Chest tube post-insertion: Air go heard, Sutured, Position confirmed w/ CXR Chest tube drainage: none Number of attempts: 2 - First attempt with 16 [place] would not connect to suction [place] tree applicator Complications: No Notes: 02/28/20 10:00 Patient tolerated well. Discharge - Discharge Clinical Impression: Spontaneous pneumothorax right Condition: Stable Disposition: ADMITTED INPATIENT Admitting Provider: Grady (Hospitalist) Unit Admitted: Surgical Floor
[2020-02-28] MEDS ORDERED: LIDOCAINE 1% INJ (10 MG/ML) 10 ML MDV INJ ONE (09:13)
--- NOTE | 2020-02-28 09:26 | RADIOLOGY REPORT (SQ) ---
EXAM DESCRIPTION: CHEST SINGLE VIEW IMAGES COMPLETED DATE/TIME: 02/28/2020 8:51 am REASON FOR STUDY: Shortness of breath COMPARISON: None. FINDINGS: One-view chest AP portable upright. Large right pneumothorax with complete collapse of the right lung. Slight tension may be present wit h minimal shift of mediastinal structures to the left. [facility] emergency department was called at the time of interpretation shortly after the study was performed. Per racing secretary and handicapper, they are in the process of placing a chest tube at the time of this d ictation. TECHNICAL DOCUMENTATION: JOB ID: [id number] Reading location - IP/workstation name: PIN [email or web address]
[2020-02-28 09:36] LABS: ABSOLUTE EOSINOPHILS # (AUTO) 0.1 10^3/uL (0.0-0.6); ABSOLUTE LYMPHOCYTES (AUTO) 1.9 10^3/uL (0.5-4.7); ABSOLUTE MONOCYTES (AUTO) 0.9 10^3/uL (0.1-1.4); BASOPHILS % (AUTO) 0.4 % (0-2); EOSINOPHILS % (AUTO) 0.5 % (0-6); HEMATOCRIT 44.9 % (37.9-51.0); HEMOGLOBIN 14.8 g/dL (13.5-17.0); LYMPHOCYTES % (AUTO) 16.2 % (13-45); MEAN CORPUSCULAR HEMOGLOBIN 30.4 pg (27.0-33.4); MEAN CORPUSCULAR HGB CONC 33.1 g/dL (32.0-36.0); MEAN CORPUSCULAR VOLUME 92 fl (80-97); MONOCYTES % (AUTO) 7.3 % (3-13); PLATELET COUNT 299 10^3/uL (150-450); RED BLOOD COUNT 4.88 10^6/uL (4.35-5.55); RED CELL DISTRIBUTION WIDTH 12.5 % (11.5-14.0); SEGMENTED NEUTROPHILS % (AUTO) 75.6 % (42-78); TOTAL CELLS COUNTED % (AUTO) 100 %; WHITE BLOOD COUNT 11.9 10^3/uL (4.0-10.5)
[2020-02-28] MEDS ORDERED: MORPHINE SULFATE 10 MG/ML INJ IV ONE ×2 (09:51→13:14)
[2020-02-28 09:55] LABS: ALBUMIN 4.6 g/dL (3.5-5.0); ALKALINE PHOSPHATASE 88 U/L (38-126); ANION GAP 8 (5-19); ASPARTATE AMINO TRANSFERASE 23 U/L (17-59); BILIRUBIN,TOTAL 1.3 mg/dL (0.2-1.3); BLOOD UREA NITROGEN 11 mg/dL (7-20); CALCIUM 9.4 mg/dL (8.4-10.2); CARBON DIOXIDE 28 mmol/L (22-30); CHLORIDE 101 mmol/L (98-107); POTASSIUM 4.5 mmol/L (3.6-5.0); TOTAL PROTEIN 7.6 g/dL (6.3-8.2)
[2020-02-28 10:04] LABS: GLUCOSE 401 mg/dL (75-110)
--- NOTE | 2020-02-28 10:04 | ER Document Report ---
ED General <CECILIA MARIN Syeda - Last Filed: 02/28/20 11:09> - General TRAVEL OUTSIDE OF THE [place] IN LAST 30 DAYS: No - Related Data Home Medications: No medications for diabetes. <DONA MORALES - Last Filed: 02/28/20 16:34> - General Chief Complaint: Shortness Of Breath Stated Complaint: SHORTNESS OF BREATH,CONGESTION,COUGH - HPI Notes: Chief complaint: Shortness of breath History of present illness: This is a 45-year-old previously healthy male presenting with shortness of breath. He was initially evaluated by physician home care assistant and found to have a large right-sided simple pneumothorax. Patient reports that he is a pack per day cigarette smoker since age 19. He was at home with his last night when he started to get up from a standing position and felt a sudden popping and burning sensation in the right shoulder area. Since then he has been progressively more short of breath. He denies fever or chills. He denies any trauma. States he is never had collapse of the lung previously. He takes no regular medications. He has multiple food allergies but no m edication allergies. (DONA MORALES) - Related Data Allergies/Adverse Reactions: avocado Allergy (Verified 12/10/18 17:03) banana Allergy (Verified 12/10/18 17:03) tropical fruit Allergy (Uncoded 12/10/18 17:03) Past Medical History - General Information source: Patient, [facility] Records - Social History Smoking Status: Current Every Day Smoker Frequency of alcohol use: Occasional Drug Abuse: Marijuana Family History: Reviewed & Not Pertinent Patient has homicidal ideation: No - Past Medical History Cardiac Medical History: Denies: Hx Congestive Heart Failure, Hx Heart Attack, Hx Hypertension Pulmonary Medical History: Denies: Hx Asthma, Hx Bronchitis, Hx COPD, Hx Pneumonia, Hx Tuberculosis Neurological Medical History: Denies: Hx Seizures, Hx Parkinson's Disease Endocrine Medical History: Reports: Hx Diabetes Mellitus Type 2 - unmedicated Renal/ Medical History: Denies: Hx Benign Prostatic Hyperplasia, Hx End Stage Renal Disease, Hx Kidney Stones, Hx Peritoneal Dialysis GI Medical History: Denies: Hx Cirrhosis, Hx Gastroesophageal Reflux Disease, Hx Ulcer Musculoskeletal Medical History: Denies Hx Arthritis, Denies Hx Multiple Sclerosis Psychiatric Medical History: Denies: Hx Bipolar Disorder, Hx Depression, Hx Schizophrenia <DONA MORALES - Last Filed: 02/28/20 16:34> Review of Systems <DONA MORALES - Last Filed: 02/28/20 16:34> - Review of Systems Notes: Constitutional: Negative for fever. HENT: Negative for sore throat. Eyes: Negative for visual changes. Cardiovascular: As per HPI. Respiratory: As per HPI. Gastrointestinal: Negative for abdominal pain, vomiting or diarrhea. Genitourinary: Negative for dysuria. Musculoskeletal: Negative for back pain. Skin: Negative for rash. Neurological: Negative for headaches, weakness or numbness. 10 point ROS negative except as marked above and in HPI. (DONA MORALES) Physical Exam <DONA MORALES - Last Filed: 02/28/20 16:34> - Vital signs Vitals: Temp Pulse Resp BP Pulse Ox 97.9 F 77 16 147/84 H 97 02/28/20 07:03 02/28/20 07:03 02/28/20 07:03 02/28/20 07:03 02/28/20 07:03 - Notes Notes: GENERAL: Well-developed well-nourished male approximately stated age appearing mildly dyspneic. SKIN: Good turgor no rashes. HEAD: Normocephalic atraumatic. EYES: PERRLA. EOMI. Conjunctivae and sclerae clear. EARS: CANALS AND TMS CLEAR. NOSE: CLEAR. MOUTH: Moist mucosa. Good dentition. No stridor or edema. No drooling. NECK: Supple. No masses or thyromegaly. No adenopathy. Carotids 2+ without bruits. No JVD. BACK: Symmetrical without tenderness. CHEST: Patient is mildly tachypneic. No use of accessory muscles. Markedly diminished breath sounds on the right. HEART: Regular rhythm. No murmur gallop or rub. ABDOMEN: Soft nontender without masses, organomegaly or rebound. Bowel sounds normally active. No bruits. GENITALIA: Deferred. EXTREMITIES: No edema. No calf tenderness. Cap refill less than 1.5 seconds. Dorsalis pedis and posterior tibial pulses 3+ and symmetrical. NEUROLOGICAL: GCS 15. Alert and oriented x3. Normal gait. Fluent speech. Cranial nerves II through XII intact. Sensorimotor and cerebellar normal. Normal tone. PSYCHIATRIC: Appropriate affect. (DONA MORALES) Course - Laboratory Result Diagrams: 02/28/20 09:10 02/28/20 09:10 <CECILIA MARIN - Last Filed: 02/28/20 11:09> - Laboratory Result Diagrams: 02/28/20 09:10 02/28/20 09:10 <DONA MORALES - Last Filed: 02/28/20 16:34> - Re-evaluation Re-evalutation: 02/28/20 10:[address] Bucio at this time. He is agreed to consult on the patient would like the patient admitted to the hospitalist service related to his untreated diabetes. 02/28/20 11:09 Spoke with the hospitalist, Dr. Rasmussen at this time. He will admit the patient to the medicine service with a consult for Dr. Bucio in relation to the chest tube. Pending CT scan of the chest per request of Dr. Bucio. Patient is stable at this time. His oxygen saturation is 100% on 2 L. His heart rate in t he 60s. Normotensive. Respiratory rate 16. He is stable for admission. 02/28/20 11:12 Critical care time spent obtaining history from patient or surrogate, discussions with consultants, development of treatment plan with patient or surrogate, evaluation of patient's response to treatment, examination of patient, ordering and performing treatments and interventions, ordering and review of laboratory studies, re-evaluation of patient's condition, ordering and review of radiographic studies and review of old charts. greater than 30 minutes (CECILIA MARIN) 02/28/20 10:02 Chest x-ray is reviewed and demonstrates a large right side pneumothorax. Options for treatment were discussed with the patient and he agreed to placement of a chest tube and signed permit for same. 02/28/20 10:07 Post procedure chest x-ray confirms reexpansion of the lung and appropriate placement of right-sided chest tube. (DONA MORALES) - Vital Signs Vital signs: Temp Pulse Resp BP Pulse Ox 97.9 F 77 16 132/81 H 100 02/28/20 08:32 02/28/20 07:03 02/28/20 13:46 02/28/20 13:46 02/28/20 13:46 - Laboratory Laboratory results interpreted by me: 02/28/20 02/28/20 02/28/20 09:10 09:10 09:12 WBC 11.9 H Absolute Neuts (auto) 9.0 H Carbonic Acid ABG pCO2 ABG pO2 ABG HCO3 ABG Total CO2 ABG O2 Saturation Sodium 136.8 L Glucose 401 H* POC Glucose 410 H* 02/28/20 09:14 WBC Absolute Neuts (auto) Carbonic Acid 1.43 H ABG pCO2 47.5 H ABG pO2 262.7 H ABG HCO3 26.1 H ABG Total CO2 27.5 H ABG O2 Saturation 99.6 H Sodium Glucose POC Glucose Procedures - Chest Tube Right Midaxillary Time completed: 09:50 Consent obtained: Yes Chest tube pre-insertion: Sterile PPE donned, Chloraprep applied, Sterile drapes applied Size of Mongolian Tube (cm): 26 Anesthetic type: 1% Lidocaine mL's of anesthetic: 20 Chest tube post-insertion: Air go heard, Sutured, Position confirmed w/ CXR, Low intermittent suction Number of attempts: 1 Complications: No - none <DONA MORALES E - Last Filed: 02/28/20 16:34> Discharge - Discharge Admitting Provider: Grady (Hospitalist) Unit Admitted: Surgical Floor <CECILIA MARIN - Last Filed: 02/28/20 11:09> - Discharge Admitting Provider: Grady (Hospitalist) <DONA MORALES - Last Filed: 02/28/20 16:34> - Discharge Clinical Impression: Spontaneous pneumothorax right Condition: Stable Disposition: ADMITTED INPATIENT
[2020-02-28] MEDS ORDERED: NORMAL SALINE 1000 ML 1,000 ML IV ONE (10:06)
[2020-02-28] MEDS ORDERED: INSULIN REG, HUMAN 100 UNIT/ML 3 ML VIAL (PYX) IV ONE (10:07)
[2020-02-28] MEDS ORDERED: INSULIN REG, HUMAN 100 UNIT/ML 3 ML VIAL (PYX) SUBCUT ONE (10:07)
[2020-02-28 10:20] LABS: ARTERIAL BLOOD BASE EXCESS 0 mmol/L; ARTERIAL BLOOD H2CO3 1.43 mmol/L (1.05-1.35); ARTERIAL BLOOD HCO3 26.1 mmol/L (20-24); ARTERIAL BLOOD O2 SATURATION 99.6 % (94-98); ARTERIAL BLOOD PCO2 47.5 mmHg (35-45); ARTERIAL BLOOD PH 7.36 (7.35-7.45); ARTERIAL BLOOD PO2 262.7 mmHg (80-100); ARTERIAL BLOOD TOTAL CO2 27.5 mmol/L (23-27)
[2020-02-28 10:22] LABS: ARTERIAL BLOOD FIO2 15L
--- NOTE | 2020-02-28 10:27 | RADIOLOGY REPORT (SQ) ---
EXAM DESCRIPTION: CHEST SINGLE VIEW IMAGES COMPLETED DATE/TIME: 02/28/2020 10:15 am REASON FOR STUDY: chest tube placement COMPARISON: Earlier the same day. EXAM PARAMETERS: NUMBER OF VIEWS: One view. TECHNIQUE: Single frontal radiographic view of the chest acquired. RADIATION DOSE: NA LIMITATIONS: None. FINDINGS: LUNGS AND PLEURA: Large-bore right-sided chest tube is been placed. Pneumothorax has reso lved. Patchy areas of airspace disease on the right which may represent atelectasis. Left lung fiel d is clear. MEDIASTINUM AND HILAR STRUCTURES: No masses. Contour normal. HEART AND VASCULAR STRUCTURES: Heart normal in size. Normal vasculature. BONES: No acute findings. HARDWARE: None in the chest. OTHER: No other significant finding. IMPRESSION: Interval placement of a large-bore right-sided chest tube with re-expansion of the pneum othorax. Patchy linear opacities are present the right upper lobe, right mid lung field right base m ost likely atelectasis. TECHNICAL DOCUMENTATION: JOB ID: [id number] 2010 [employer]- All Rights Reserved Reading location - IP/workstation name: [email or web address]
[2020-02-28 10:38] LABS: INTERNATIONAL RATION (INR) 0.97; PROTHROMBIN TIME 13.1 SEC (11.4-15.4)
--- NOTE | 2020-02-28 11:06 | PDOC CONSULTATION ---
Consultation Consult Date: 02/28/20 Attending physician:: CECILIA MARIN Provider Consulted: JESIKA POLK Consult reason:: right sided pneumothorax History of Present Illness History of Present Illness: VIN CUENCA is a 45 year old malePatient is a 45-year-old -French male with a history of diabetes, untreated who presents to the emergency department the chief complaint of shortness of breath and discomfort in the right upper chest wall that began yesterday. He states he was using some cleaning materials to mop and clean with his . He states he took a break and sat down on the floor landing on his right arm. He states he had a couple episodes of cough and then suddenly had a sensation of shortness of breath and discomfort in the right upper chest wall. States this persisted since yesterday so he decided to come today for evaluation. He denies any recent travel or known sick contacts. No fever. He has a slight ongoing cough. He is a current everyday smoker of a pack every other day. Been smoking since about 19 years old. Denies any trauma or injury. No hemoptysis. Past Medical History Cardiac Medical History: Denies: Congestive Heart Failure, Myocardial Infarction, Hypertension Pulmonary Medical History: Denies: Asthma, Bronchitis, Chronic Obstructive Pulmonary Disease (COPD), Pneumonia, Tuberculosis Neurological Medical History: Denies: Seizures Endocrine Medical History: Reports: Diabetes Mellitus Type 2 - unmedicated Renal/ Medical History: Denies: End Stage Renal Disease GI Medical History: Denies: Cirrhosis, Gastroesophageal Reflux Disease Musculoskeltal Medical History: Denies: Arthritis Psychiatric Medical History: Denies: Bipolar Disorder, Depression Hematology: Denies: Anemia, Bleeding Tendencies Social History Smoking Status: Current Every Day Smoker Drugs: Cocaine Family History Family History: Reviewed & Not Pertinent Parental Family History Reviewed: No Children Family History Reviewed: NA Sibling(s) Family History Reviewed.: NA Medication/Allergy Home Medications: No Home Medications 12/11/18 Allergies/Adverse Reactions: avocado Allergy (Verified 12/10/18 17:03) banana Allergy (Verified 12/10/18 17:03) tropical fruit Allergy (Uncoded 12/10/18 17:03) Physical Exam Vital Signs: Temp Pulse Resp BP Pulse Ox 97.9 F 77 16 147/84 H 97 02/28/20 08:32 02/28/20 07:03 02/28/20 07:03 02/28/20 07:03 02/28/20 07:03 Intake & Output 02/27/20 02/28/20 02/29/20 06:59 06:59 06:59 Weight 101.3 kg General appearance: PRESENT: no acute distress, mild distress Head exam: PRESENT: normocephalic Eye exam: PRESENT: EOMI Ear exam: PRESENT: normal external ear exam Mouth exam: PRESENT: moist Neck exam: PRESENT: full ROM Respiratory exam: PRESENT: clear to auscultation alee, rhonchi Cardiovascular exam: PRESENT: RRR Pulses: PRESENT: normal radial pulses, normal femoral pulses Vascular exam: PRESENT: normal capillary refill Breast: PRESENT: Normal GI/Abdominal exam: PRESENT: soft Rectal exam: PRESENT: deferred Extremities exam: PRESENT: full ROM Musculoskeletal exam: PRESENT: full ROM Neurological exam: PRESENT: alert, awake, oriented to person, oriented to place Psychiatric exam: PRESENT: appropriate affect Skin exam: PRESENT: dry Results Laboratory Results: 02/28/20 09:10 02/28/20 09:10 02/28/20 02/28/20 02/28/20 09:10 09:10 09:14 WBC 11.9 H RBC 4.88 Hgb 14.8 Hct 44.9 MCV 92 MCH 30.4 MCHC 33.1 RDW 12.5 Plt Count 299 Seg Neutrophils % 75.6 Carbonic Acid 1.43 H HCO3/H2CO3 Ratio 18:1 ABG pH 7.36 ABG pCO2 47.5 H ABG pO2 262.7 H ABG HCO3 26.1 H ABG O2 Saturation 99.6 H ABG Base Excess 0 FiO2 15L Sodium 136.8 L Potassium 4.5 Chloride 101 Carbon Dioxide 28 Anion Gap 8 BUN 11 Creatinine 0.69 Est GFR ( Amer) > 60 Glucose 401 H* Calcium 9.4 Total Bilirubin 1.3 AST 23 Alkaline Phosphatase 88 Total Protein 7.6 Albumin 4.6 Impressions: Chest X-Ray 02/28/20 09:54 IMPRESSION: Interval placement of a large-bore right-sided chest tube with re- expansion of the pneumothorax. Patchy linear opacities are present the right upper lobe, right mid lung field right base most likely atelectasis. Assessment & Plan - Plan Summary Plan Summary: right sided pneumothorax s/p chest tube placement via er physician now with resolution need w/u for spont ptx suggest ct chest may need pulmonogy consult pt aslo poorly controlled diabetic will need medicine admission for w/u surgery will follow and manage chest tube.
--- NOTE | 2020-02-28 12:09 | RADIOLOGY REPORT (SQ) ---
EXAM DESCRIPTION: CT CHEST WITH IMAGES COMPLETED DATE/TIME: 02/28/2020 11:50 am REASON FOR STUDY: pneumothorax resolved COMPARISON: Chest x-ray done earlier the same day. TECHNIQUE: CT scan of the chest performed using helical scanning technique with dynamic intravenous contrast injection. Images reviewed with lung, soft tissue and bone windows. Reconstructed coronal and sagittal MPR and MIP images reviewed. All images stored on PACS. All CT scanners at this facility use dose modulation, iterative reconstruction, and/or weight based d osing when appropriate to reduce radiation dose to as low as reasonably achievable (ALARA). [facility]: Dose Right [facility]: CareDose [facility]: Dose Right [facility]: Teradose 4D [facility]: [employer] CONTRAST TYPE AND DOSE: contrast/concentration: Isovue 350.00 mmol/ml; Total Contrast Delivered: 80. 0 ml; Total Saline Delivered: 55.0 ml RENAL FUNCTION: None required. The patient is less than 50 years old. RADIATION DOSE: CT Rad equipment meets quality standard of care and radiation dose reduction techniq ues were employed. CTDIvol: 16.6 mGy. DLP: 630 mGy-cm. . LIMITATIONS: None. FINDINGS: LUNGS AND PLEURA: Persistent right anterior pneumothorax. Right basilar atelectasis or pn eumonia. Ground-glass opacity in the right upper lobe consistent with atelectasis or pneumonia as we ll. Left lung field is clear. There is left basilar atelectasis. HILAR AND MEDIASTINAL STRUCTURES: No identified masses or abnormal nodes. HEART AND VASCULAR STRUCTURES: No aneurysm or dissection. No central pulmonary emboli. No pericardi al effusion. HARDWARE: Large-bore right-sided chest tube is in place on the right. UPPER ABDOMEN: No significant findings. Limited exam. THYROID AND OTHER SOFT TISSUES: No masses. No adenopathy. BONES: No significant finding. OTHER: No other significant finding. IMPRESSION: Persistent right anterior pneumothorax with right upper and lower lobe airspace disease either atelectasis or pneumonia. Minimal left basilar atelectasis. TECHNICAL DOCUMENTATION: JOB ID: [id number] Quality ID # [id number]: Final reports with documentation of one or more dose reduction techniques (e.g., Au tomated exposure control, adjustment of the mA and/or kV according to patient size, use of iterative reconstruction technique) 2010 [employer]- All Rights Reserved Reading location - IP/workstation name: [email or web address] BEDS AT THE [facility]
[2020-02-28] MEDS ORDERED: IPRATROPIUM/ALBUTEROL 0.5-2.5 MG/3 ML AMPUL NEB PRN (15:47)
[2020-02-28] MEDS ORDERED: ONDANSETRON 4 MG TAB.RAPDIS PO PRN (15:47)
[2020-02-28] MEDS ORDERED: ONDANSETRON HCL INJ/PF 4 MG/2 ML SDV IV PRN (15:47)
[2020-02-28] MEDS ORDERED: MORPHINE SULFATE 10 MG/ML INJ IV PRN (16:05)
[2020-02-28 16:38] LABS: ABSOLUTE EOSINOPHILS # (AUTO) 0.1 10^3/uL (0.0-0.6); ABSOLUTE MONOCYTES (AUTO) 1.2 10^3/uL (0.1-1.4); ABSOLUTE NEUT (AUTO) 15.8 10^3/uL (1.7-8.2); BASOPHILS % (AUTO) 0.1 % (0-2); EOSINOPHILS % (AUTO) 0.3 % (0-6); HEMATOCRIT 46.2 % (37.9-51.0); LYMPHOCYTES % (AUTO) 10.4 % (13-45); MEAN CORPUSCULAR HGB CONC 32.5 g/dL (32.0-36.0); MEAN CORPUSCULAR VOLUME 92 fl (80-97); MONOCYTES % (AUTO) 6.1 % (3-13); PLATELET COUNT 288 10^3/uL (150-450); RED BLOOD COUNT 5.01 10^6/uL (4.35-5.55); RED CELL DISTRIBUTION WIDTH 12.2 % (11.5-14.0); SEGMENTED NEUTROPHILS % (AUTO) 83.1 % (42-78); TOTAL CELLS COUNTED % (AUTO) 100 %
[2020-02-28] MEDS: INSULIN LISPRO 100 UNIT/ML 3 ML VIAL SUBCUT SCH ×2 (17:06→21:56)
[2020-02-28] MEDS: RINGERS SOLUTION,LACTATED 1,000 ML IV PRN (17:20)
[2020-02-28] MEDS: OXYCODONE-ACETAMINOPHEN 5-325 MG TABLET PO PRN (17:20)
--- NOTE | 2020-02-28 17:41 | PDOC H&P ---
History of Present Illness Admission Date/PCP: 02/28/20 11:59 History of Present Illness: VIN CUENCA is a 45 year old male with past medical history significant for T2DM, tobacco abuse, marijuana abuse who presents with a 2-day history of progressive right-sided chest pain which began after patient had a coughing fit while smoking marijuana 1 day prior to admission. Patient states he has been smoking cigarettes marijuana for many years with no intention to quit. Patient came to ED where he had a chest tube placed in his right chest by general surgery. Dr. Bucio is been consulted and will follow the patient during admission. He was counseled on cessation. Patient states he also has untreated diabetes because he took himself off his medications approximately 10 years ago because he did not like the way his medications made him feel. He also stopped checking his blood sugar. Blood sugar on admission was greater than 400 patient was started on insulin sliding scale and Accu-Cheks. Past Medical History Cardiac Medical History: Denies: Congestive Heart Failure, Myocardial Infarction, Hypertension Pulmonary Medical History: Denies: Asthma, Bronchitis, Chronic Obstructive Pulmonary Disease (COPD), Pneumonia, Tuberculosis Neurological Medical History: Denies: Seizures Endocrine Medical History: Reports: Diabetes Mellitus Type 2 - unmedicated Renal/ Medical History: Denies: End Stage Renal Disease GI Medical History: Denies: Cirrhosis, Gastroesophageal Reflux Disease Musculoskeltal Medical History: Denies: Arthritis Psychiatric Medical History: Denies: Bipolar Disorder, Depression Hematology: Denies: Anemia, Bleeding Tendencies Past Surgical History Past Surgical History: Reports: Cholecystectomy Social History Smoking Status: Current Every Day Smoker Cigarettes Packs Per Day: 1 Number of Years Smokin Hx Recreational Drug Use: Yes Drugs: Cocaine, Marijuana - Advance Directive Resuscitation Status: Do Not Resuscitate Surrogate healthcare decision maker:: Family History Family History: Reviewed & Not Pertinent, Malignancy Parental Family History Reviewed: Yes Children Family History Reviewed: Yes Sibling(s) Family History Reviewed.: Yes Medication/Allergy Home Medications: No Home Medications 12/11/18 Allergies/Adverse Reactions: avocado Allergy (Verified 12/10/18 17:03) banana Allergy (Verified 12/10/18 17:03) tropical fruit Allergy (Uncoded 12/10/18 17:03) Review of Systems All systems: reviewed and no additional remarkable complaints except as stated - Review of systems per HPI, otherwise negative Physical Exam Vital Signs: Temp Pulse Resp BP Pulse Ox 97.4 F 70 20 154/92 H 100 02/28/20 15:02 02/28/20 15:02 02/28/20 15:02 02/28/20 15:02 02/28/20 15:02 Intake & Output 02/27/20 02/28/20 02/29/20 06:59 06:59 06:59 Intake Total 1000 Balance 1000 Weight 103.5 kg General appearance: PRESENT: no acute distress, well-developed, well-nourished Head exam: PRESENT: atraumatic, normocephalic Eye exam: PRESENT: conjunctiva pink Mouth exam: PRESENT: moist Respiratory exam: PRESENT: rhonchi - Primarily right-sided chest with rhonchi, other - Right chest tube in place. ABSENT: rales, wheezes Cardiovascular exam: PRESENT: RRR. ABSENT: diastolic murmur, rubs, systolic murmur GI/Abdominal exam: PRESENT: normal bowel sounds, soft. ABSENT: distended, guarding, mass, organolmegaly, rebound, tenderness Neurological exam: PRESENT: alert, awake, oriented to person, oriented to place, oriented to time, oriented to situation Psychiatric exam: PRESENT: appropriate affect, normal mood Skin exam: PRESENT: dry, intact, warm Results Laboratory Results: 02/28/20 16:14 02/28/20 09:10 02/28/20 02/28/20 02/28/20 09:10 09:10 09:14 WBC 11.9 H RBC 4.88 Hgb 14.8 Hct 44.9 MCV 92 MCH 30.4 MCHC 33.1 RDW 12.5 Plt Count 299 Seg Neutrophils % 75.6 Carbonic Acid 1.43 H HCO3/H2CO3 Ratio 18:1 ABG pH 7.36 ABG pCO2 47.5 H ABG pO2 262.7 H ABG HCO3 26.1 H ABG O2 Saturation 99.6 H ABG Base Excess 0 FiO2 15L Sodium 136.8 L Potassium 4.5 Chloride 101 Carbon Dioxide 28 Anion Gap 8 BUN 11 Creatinine 0.69 Est GFR ( Amer) > 60 Glucose 401 H* Calcium 9.4 Total Bilirubin 1.3 AST 23 Alkaline Phosphatase 88 Total Protein 7.6 Albumin 4.6 02/28/20 16:14 WBC 19.0 H RBC 5.01 Hgb 15.0 Hct 46.2 MCV 92 MCH 30.0 MCHC 32.5 RDW 12.2 Plt Count 288 Seg Neutrophils % 83.1 H Carbonic Acid HCO3/H2CO3 Ratio ABG pH ABG pCO2 ABG pO2 ABG HCO3 ABG O2 Saturation ABG Base Excess FiO2 Sodium Potassium Chloride Carbon Dioxide Anion Gap BUN Creatinine Est GFR ( Amer) Glucose Calcium Total Bilirubin AST Alkaline Phosphatase Total Protein Albumin Impressions: Chest X-Ray 02/28/20 09:54 IMPRESSION: Interval placement of a large-bore right-sided chest tube with re-expansion of the pneumothorax. Patchy linear opacities are present the right upper lobe, right mid lung field right base most likely atelectasis. Chest CT 02/28/20 11:14 IMPRESSION: Persistent right anterior pneumothorax with right upper and lower lobe airspace disease either atelectasis or pneumonia. Minimal left basilar atelectasis. Assessment and Plan - Diagnosis (1) Spontaneous pneumothorax Is this a current diagnosis for this admission?: Yes (2) T2DM (type 2 diabetes mellitus) Qualifiers: Diabetes mellitus jail insulin use: with jail use Diabetes mellitus complication status: with neurologic complications Diabetes mellitus complication detail: with mononeuropathy Qualified Code(s): E11.41 - Type 2 diabetes mellitus with diabetic mononeuropathy; Z79.4 - assisted (current) use of insulin Is this a current diagnosis for this admission?: Yes Plan: Untreated for the past 10 years at least, blood sugar over 400 on admission Sliding scale insulin, Accu-Cheks Hemoglobin A1c Counseled on risks of untreated diabetes Foot exam showed multiple calluses without ulcerations (3) Polysubstance abuse Is this a current diagnosis for this admission?: Yes Plan: Admits to using cocaine and marijuana recreationally, last used cocaine 4 months ago, last used marijuana on the day of his pneumothorax Counseled on cessation (4) Smoker Is this a current diagnosis for this admission?: Yes Plan: Current smoker 1 pack/day, counseled on cessation - Time Time Spent with patient: 35 or more minutes Smoking Cessation Education: 3 to 10 minutes Medications reviewed and adjusted accordingly: Yes Anticipated Discharge Disposition: Home, Self Care Anticipated Discharge Timeframe: within 72 hours - Inpatient Certification Based on my medical assessment, after consideration of the patient's comorbidities, presenting symptoms, or acuity I expect that the services needed warrant INPATIENT care.: Yes I certify that my determination is in accordance with my understanding of Medicare's requirements for reasonable and necessary INPATIENT services [42 CFR 412.3e].: Yes Medical Necessity: Significant Comorbidiites Make Outpatient Treatment Too Risky, Need Close Monitoring Due to Risk of Patient Decompensation, Need for S urgery, Risk of Complication if Not Cared For in Hospital, Risk of Diagnosis Which Will Require Inpatient Eval/Care/Monitoring
--- NOTE | 2020-02-28 17:42 | ADVANCED CARE ---
- Diagnosis (1) Spontaneous pneumothorax Diagnosis Current: Yes (2) T2DM (type 2 diabetes mellitus) Diagnosis Current: Yes (3) Polysubstance abuse Diagnosis Current: Yes (4) Smoker Diagnosis Current: Yes Attendance: Patient Resuscitation Status: Do Not Resuscitate Discussion: All aspects of code status discussed with patient/POA including cardioversion, chest compressions, and intubation and the patient/POA indicated they wish to be DNR/DNI MPOA is designated as: , Emory Saba Time Spent: Greater than 16 minutes
[2020-02-29] MEDS: RINGERS SOLUTION,LACTATED 1,000 ML IV PRN ×2 (05:30→19:06)
[2020-02-29 06:00] LABS: PHOSPHORUS 3.6 mg/dL (2.5-4.5)
[2020-02-29] MEDS: OXYCODONE-ACETAMINOPHEN 5-325 MG TABLET PO PRN ×3 (07:30→20:40)
[2020-02-29] MEDS: INSULIN LISPRO 100 UNIT/ML 3 ML VIAL SUBCUT SCH ×4 (07:31→22:20)
--- NOTE | 2020-02-29 08:37 | PDOC PROGRESS REPORT ---
Subjective Progress Note for:: 02/29/20 Reason For Visit: SPONTANEOUS PNEUMOTHORAX Patient on the floor, eating; chest tube to suction, with air leaking through the waterseal chamber Physical Exam Vital Signs: Temp Pulse Resp BP Pulse Ox 98.6 F 61 16 117/69 100 02/28/20 23:30 02/28/20 23:30 02/28/20 23:30 02/28/20 23:30 02/28/20 23:30 Intake & Output 02/28/20 02/29/20 03/01/20 06:59 06:59 06:59 Intake Total 2143 Output Total 550 Balance 1593 Weight 104.2 kg General appearance: PRESENT: no acute distress Respiratory exam: PRESENT: other - Decreased breath sounds on the right, poor pulmonary effort. Difficult to appreciate soft tissue subcutaneous air. Results Laboratory Results: 02/28/20 16:14 02/28/20 09:10 02/28/20 02/28/20 02/28/20 09:10 09:10 09:14 WBC 11.9 H RBC 4.88 Hgb 14.8 Hct 44.9 MCV 92 MCH 30.4 MCHC 33.1 RDW 12.5 Plt Count 299 Seg Neutrophils % 75.6 Carbonic Acid 1.43 H HCO3/H2CO3 Ratio 18:1 ABG pH 7.36 ABG pCO2 47.5 H ABG pO2 262.7 H ABG HCO3 26.1 H ABG O2 Saturation 99.6 H ABG Base Excess 0 FiO2 15L Sodium 136.8 L Potassium 4.5 Chloride 101 Carbon Dioxide 28 Anion Gap 8 BUN 11 Creatinine 0.69 Est GFR ( Amer) > 60 Glucose 401 H* Calcium 9.4 Phosphorus Magnesium Total Bilirubin 1.3 AST 23 Alkaline Phosphatase 88 Total Protein 7.6 Albumin 4.6 02/28/20 02/29/20 16:14 05:21 WBC 19.0 H RBC 5.01 Hgb 15.0 Hct 46.2 MCV 92 MCH 30.0 MCHC 32.5 RDW 12.2 Plt Count 288 Seg Neutrophils % 83.1 H Carbonic Acid HCO3/H2CO3 Ratio ABG pH ABG pCO2 ABG pO2 ABG HCO3 ABG O2 Saturation ABG Base Excess FiO2 Sodium Potassium Chloride Carbon Dioxide Anion Gap BUN Creatinine Est GFR ( Amer) Glucose Calcium Phosphorus 3.6 Magnesium 1.8 Total Bilirubin AST Alkaline Phosphatase Total Protein Albumin Impressions: Chest CT 02/28/20 11:14 IMPRESSION: Persistent right anterior pneumothorax with right upper and lower lobe airspace disease either atelectasis or pneumonia. Minimal left basilar atelectasis. Assessment & Plan - Diagnosis (1) Spontaneous pneumothorax Is this a current diagnosis for this admission?: Yes Plan: Impression: Hospital day 2 for obese Afro[place] male, diabetic uncontrolled, history of substance abuse, spontaneous pneumothorax with intermediate caliber chest tube inserted in the emergency department; persisting air leak through Pleur-evac. Recommendations: 1. I reviewed the chest x-ray from this morning. The sentinel hole of the chest tube is outside the chest. I reviewed the CT scan of the chest from 02/10/2020. This shows the chest tube to be in the major fissure with a persisting apical and anterior pneumothorax. 2. I am concerned the current chest tube may not be adequate to get his lung reexpanded and a second chest tube may be required. 3. 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 - Type 2 diabetes mellitus with diabetic mononeuropathy; Z79.4 - long term care phlebotomist (current) use of insulin - Time Time Spent: 30 to 50 Minutes Critical Time spent with patient: Less than 15 minutes Medications reviewed and adjusted accordingly: Yes Anticipated Discharge Disposition: Home, Self Care Anticipated Discharge Timeframe: within 48 hours - Inpatient Certification Based on my medical assessment, after consideration of the patient's comorbidities, presenting symptoms, or acuity I expect that the services needed warrant INPATIENT care.: Yes I certify that my determination is in accordance with my understanding of Medicare's requirements for reasonable and necessary INPATIENT services [42 CFR 412.3e].: Yes Medical Necessity: Need For IV Fluids
--- NOTE | 2020-02-29 09:12 | RADIOLOGY REPORT (SQ) ---
EXAM DESCRIPTION: CHEST SINGLE VIEW IMAGES COMPLETED DATE/TIME: 02/29/2020 7:38 am REASON FOR STUDY: ptx COMPARISON: 02/28/2020. EXAM PARAMETERS: NUMBER OF VIEWS: One view. TECHNIQUE: Single frontal radiographic view of the chest acquired. RADIATION DOSE: NA LIMITATIONS: None. FINDINGS: LUNGS AND PLEURA: The chest tube has been repositioned with side hole now outside of the p leural space. There is a resulting small pneumothorax, with apical and medial components, measuring 1.5 cm from the lung apex. Mild atelectasis in the mid lung. The left lung is clear. MEDIASTINUM AND HILAR STRUCTURES: No masses. Contour normal. HEART AND VASCULAR STRUCTURES: Heart normal in size. Normal vasculature. BONES: No acute findings. HARDWARE: Right chest tube as described above. OTHER: No other significant finding. IMPRESSION: The right chest tube has repositioned with side hole now outside of the pleural space, w ith resulting small right pneumothorax. COMMENT: Findings were discussed with the patient's RN on 02/29/2020 at 0905 hours. TECHNICAL DOCUMENTATION: JOB ID: [id number] 2010 [employer]- All Rights Reserved Reading location - IP/workstation name: [email or web address]
[2020-02-29] MEDS: DOCUSATE SODIUM 100 MG CAPSULE PO SCH ×2 (09:15→18:33)
[2020-02-29] MEDS ORDERED: DOCUSATE SODIUM 100 MG CAPSULE PO SCH (10:00)
--- NOTE | 2020-02-29 14:36 | PDOC PROGRESS REPORT ---
Subjective Progress Note for:: 02/29/20 Subjective:: Patient admitted for spontaneous pneumothorax on the right, status post chest tube placed by general surgery on admission. He also has untreated type 2 diabetes with blood sugars in the 400s on admission. 02/29/2020 Patient seems to be stable today although according to his chest x-ray he has incomplete resolution of his pneumothorax. I discussed the case with Dr. Mar today in detail and he is considering adding a second chest tube. Patient had a coronavirus test today which was negative. I discussed the potential plan with the patient and if he needs to go back to the OR he seems to be in agreement with this. I also answered multiple questions his had today and they have no current concerns. WBC elevated but I think this is most likely due to the pneumothorax itself along with the chest tube placement both of which are stressful events can cause leukocytosis without indicating an infection. Patient has no new complaints other than some very mild shortness of breath with exertion and expected chest pain at the chest tube insertion site. Reason For Visit: SPONTANEOUS PNEUMOTHORAX Physical Exam Vital Signs: Temp Pulse Resp BP Pulse Ox 98.2 F 64 16 130/81 H 98 02/29/20 11:55 02/29/20 12:37 02/29/20 12:37 02/29/20 11:55 02/29/20 12:37 Intake & Output 02/28/20 02/29/20 03/01/20 06:59 06:59 06:59 Intake Total 2143 480 Output Total 550 400 Balance 1593 80 Weight 104.2 kg General appearance: PRESENT: no acute distress, well-developed, well-nourished Head exam: PRESENT: atraumatic, normocephalic Eye exam: PRESENT: conjunctiva pink Mouth exam: PRESENT: moist Respiratory exam: PRESENT: clear to auscultation alee. ABSENT: rales, rhonchi, wheezes Cardiovascular exam: PRESENT: RRR. ABSENT: diastolic murmur, rubs, systolic murmur GI/Abdominal exam: PRESENT: normal bowel sounds, soft. ABSENT: distended, guarding, mass, organolmegaly, rebound, tenderness Neurological exam: PRESENT: alert, awake, oriented to person, oriented to place, oriented to time, oriented to situation Psychiatric exam: PRESENT: appropriate affect, normal mood Skin exam: PRESENT: dry, intact, warm Results Laboratory Results: 02/28/20 16:14 02/28/20 09:10 02/28/20 02/29/20 16:14 05:21 WBC 19.0 H RBC 5.01 Hgb 15.0 Hct 46.2 MCV 92 MCH 30.0 MCHC 32.5 RDW 12.2 Plt Count 288 Seg Neutrophils % 83.1 H Phosphorus 3.6 Magnesium 1.8 Impressions: Chest CT 02/28/20 11:14 IMPRESSION: Persistent right anterior pneumothorax with right upper and lower lobe airspace disease either atelectasis or pneumonia. Minimal left basilar a telectasis. Chest X-Ray 02/29/20 08:00 IMPRESSION: The right chest tube has repositioned with side hole now outside of the pleural space, with resulting small right pneumothorax. Assessment and Plan - Diagnosis (1) Spontaneous pneumothorax Is this a current diagnosis for this admission?: Yes Plan: Impression: Hospital day 2 for obese Afro-[place] male, diabetic uncontrolled, history of substance abuse, spontaneous pneumothorax with intermediate caliber chest tube inserted in the emergency department; persisting air leak through Pleur-evac. Recommendations: 1. I reviewed the chest x-ray from this morning. The sentinel hole of the chest tube is outside the chest. I reviewed the CT scan of the chest from 02/10/2020. This shows the chest tube to be in the major fissure with a persisting apical and anterior pneumothorax. 2. I am concerned the current chest tube may not be adequate to get his lung reexpanded and a second chest tube may be required. 3. We will discuss with primary care team; will obtain a COVID test 02/29/2020 Right chest tube in place, discussed case with Dr. 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 Diabetes mellitus complication status: with neurologic complications Diabetes mellitus complication detail: with mononeuropathy Qualified Code(s): E11.41 - Type 2 diabetes mellitus with diabetic mononeuropathy; Z79.4 - alf (current) use of insulin Is this a current diagnosis for this admission?: Yes Plan: Untreated for the past 10 years at least, blood sugar over 400 on admission Sliding scale insulin, Accu-Cheks Hemoglobin A1c Counseled on risks of untreated diabetes Foot exam showed multiple calluses without ulcerations Well-controlled on sliding scale insulin, continue, may be appropriate for oral therapy at discharge given his overall sensitivity to relatively low dose insulin (3) Polysubstance abuse Is this a current diagnosis for this admission?: Yes (4) Smoker Is this a current diagnosis for this admission?: Yes - Time Time Spent with patient: 25-34 minutes Medications reviewed and adjusted accordingly: Yes Anticipated Discharge Disposition: Home, Self Care Anticipated Discharge Timeframe: within 72 hours - Inpatient Certification Based on my medical assessment, after consideration of the patient's comorbid ities, presenting symptoms, or acuity I expect that the services needed warrant INPATIENT care.: Yes I certify that my determination is in accordance with my understanding of Medicare's requirements for reasonable and necessary INPATIENT services [42 CFR 412.3e].: Yes Medical Necessity: Significant Comorbidiites Make Outpatient Treatment Too Risky, Need Close Monitoring Due to Risk of Patient Decompensation, Risk of Complication if Not Cared For in Hospital, Risk of Diagnosis Which Will Require Inpatient Eval/Care/Monitoring
[2020-02-29] MEDS: ENOXAPARIN SODIUM INJ 40 MG/0.4 ML DISP.SYRIN SUBCUT SCH (18:34)
[2020-03-01] MEDS: OXYCODONE-ACETAMINOPHEN 5-325 MG TABLET PO PRN ×3 (06:04→19:31)
[2020-03-01] MEDS: ACETAMINOPHEN 325 MG TABLET PO PRN ×2 (07:41→17:37)
[2020-03-01] MEDS: INSULIN LISPRO 100 UNIT/ML 3 ML VIAL SUBCUT SCH ×4 (08:54→22:15)
--- NOTE | 2020-03-01 09:33 | RADIOLOGY REPORT (SQ) ---
EXAM DESCRIPTION: CHEST 2 VIEWS IMAGES COMPLETED DATE/TIME: 03/01/2020 7:39 am REASON FOR STUDY: persistent PTX COMPARISON: Chest radiograph, 02/29/2020. EXAM PARAMETERS: NUMBER OF VIEWS: two views TECHNIQUE: Digital Frontal and Lateral radiographic views of the chest acquired. RADIATION DOSE: NA LIMITATIONS: none FINDINGS: LUNGS AND PLEURA: Increasing right pneumothorax, now measuring 5.2 cm from the apex. Comp ressive atelectasis in the right mid to lower lung. The left lung is clear. No left pneumothorax. MEDIASTINUM AND HILAR STRUCTURES: No masses or contour abnormalities. HEART AND VASCULAR STRUCTURES: Heart normal size. No evidence for failure. BONES: No acute findings. HARDWARE: The left chest tube tip remains in the pleural space however the side hole is outside the r ight hemithorax. OTHER: Subcutaneous gas not significantly changed. IMPRESSION: Increasing now moderate right pneumothorax. Chest tube malpositioned with side hole out side the hemithorax. COMMENT: Findings discussed with RACHEL Heard taking care of the patient on 03/01/2020 at 0920 hours. TECHNICAL DOCUMENTATION: JOB ID: [id number] 2010 [employer]- All Rights Reserved Reading location - IP/workstation name: [email or web address]
[2020-03-01] MEDS: DOCUSATE SODIUM 100 MG CAPSULE PO SCH ×2 (09:36→17:38)
[2020-03-01] MEDS ORDERED: LIDOCAINE 1.5%/EPINEPHRINE INJ-PF 30 ML SDV INJ PRN (09:59)
[2020-03-01] MEDS ORDERED: LIDOCAINE 1% INJ-PF (10 MG/ML) 30 ML SDV ONE (10:36)
[2020-03-01] MEDS ORDERED: INSULIN GLARGINE,HUM.REC.ANLOG 1,000 UNIT/10 ML VIAL (PYX) SUBCUT ONE ×2 (11:00→17:44)
[2020-03-01] MEDS ORDERED: MORPHINE SULFATE 10 MG/ML INJ ONE (11:20)
--- NOTE | 2020-03-01 11:38 | PDOC PROGRESS REPORT ---
Subjective Progress Note for:: 03/01/20 Subjective:: 45-year-old male with a spontaneous right-sided pneumothorax. Patient denies any chest pain or shortness of breath today. He does report drainage from his chest tube site. He also denies headache, fevers, chills, nausea, vomiting, melena, hematochezia, abdominal pain. Reason For Visit: SPONTANEOUS PNEUMOTHORAX Physical Exam Vital Signs: Temp Pulse Resp BP Pulse Ox 98.5 F 63 18 134/76 H 100 03/01/20 08:00 03/01/20 08:00 03/01/20 08:00 03/01/20 08:00 03/01/20 08:00 Intake & Output 02/29/20 03/01/20 03/02/20 06:59 06:59 06:59 Intake Total 2143 1820 Output Total 550 1500 Balance 1593 320 Weight 104.2 kg 108.7 kg General appearance: PRESENT: no acute distress, cooperative Head exam: PRESENT: atraumatic, normocephalic Eye exam: PRESENT: EOMI, PERRLA. ABSENT: scleral icterus Mouth exam: PRESENT: neck supple Neck exam: ABSENT: meningismus, tenderness, thyromegaly, tracheal deviation Respiratory exam: PRESENT: chest wall tenderness - Right lateral chest wall, unlabored. ABSENT: tachypnea, wheezes Cardiovascular exam: ABSENT: tachycardia Vascular exam: PRESENT: normal capillary refill GI/Abdominal exam: PRESENT: soft. ABSENT: distended, tenderness Rectal exam: PRESENT: deferred Gentrourinary exam: ABSENT: erythema Extremities exam: ABSENT: clubbing Musculoskeletal exam: ABSENT: deformity Neurological exam: PRESENT: alert, awake, oriented to person, oriented to place, oriented to time, oriented to situation, CN II-XII grossly intact. ABSENT: motor sensory deficit Psychiatric exam: ABSENT: agitated, anxious, depressed Focused psych exam: ABSENT: delusional Skin exam: ABSENT: cyanosis, erythema, jaundice Results Laboratory Results: 02/28/20 16:14 02/28/20 09:10 Impressions: Chest CT 02/28/20 11:14 IMPRESSION: Persistent right anterior pneumothorax with right upper and lower lobe airspace disease either atelectasis or pneumonia. Minimal left basilar atelectasis. Chest X-Ray 03/01/20 00:00 IMPRESSION: Increasing now moderate right pneumothorax. Chest tube malpositioned with side hole outside the hemithorax. Assessment & Plan - Diagnosis (1) Spontaneous pneumothorax Is this a current diagnosis for this admission?: Yes - Time Anticipated Discharge Disposition: Home, Self Care Anticipated Discharge Timeframe: unknown - Plan Summary Plan Summary: This is a 45-year-old male with a spontaneous pneumothorax on the right. The patient continues to have persistence of his right-sided pneumothorax. I believe that is due to the suboptimal placement of his right inferior chest tube. Plan for today is to place a small bore, anterior chest tube in hopes of evacuating the residual pneumothorax. If this is successful, plan to remove the right lower chest tube later today. If the patient does not have resolution of his spontaneous pneumothorax with thoracostomy, he may require VATS. Surgery will continue to follow with you.
--- NOTE | 2020-03-01 11:42 | Operative Report ---
Nonrecallable Operative Report DATE OF SURGERY: 03/01/20 PREOPERATIVE DIAGNOSIS: Persistent right-sided spontaneous pneumothorax POSTOPERATIVE DIAGNOSIS: Same as above OPERATION: Percutaneous insertion of right-sided, small bore, tube thoracostomy SURGEON: ABBE CROCKETT ANESTHESIA: Local TISSUE REMOVED OR ALTERED: None COMPLICATIONS: None apparent ESTIMATED BLOOD LOSS: Minimal PROCEDURE: Drains/implants: 14 Ukrainian percutaneously inserted right anterior tube thoracostomy. Procedure in detail: After informed consent was obtained from the patient he was sat in the semi-upright position in the hospital room. The area of the right upper chest was prepped and draped in a normal sterile fashion. 1% lidocaine wi th epinephrine was used to anesthetize the skin and chest wall. A 14 Ukrainian percutaneous [place] tube was inserted over a trocar. It was inserted immediately superior to the rib in the midclavicular line, second/third intercostal space. A go of air was noted upon entry into the chest. The tube was sutured into place using 0 silk suture x2. A dressing was placed. The tube was attached to Pleur-evac suction. Immediately there was a persistent air leak, which changed to intermittent after suction was applied. At this time the procedure was concluded. All sponge, instrument, and needle counts were correct. Condition: Stable.
--- NOTE | 2020-03-01 12:26 | RADIOLOGY REPORT (SQ) ---
EXAM DESCRIPTION: CHEST SINGLE VIEW IMAGES COMPLETED DATE/TIME: 03/01/2020 12:16 pm REASON FOR STUDY: eval PTX after anterior chest tube lacement COMPARISON: Earlier the same day. NUMBER OF VIEWS: One view. TECHNIQUE: Single frontal radiographic image of the chest acquired. LIMITATIONS: None. FINDINGS: There has been re-expansion of the right lung status post interval placement of a 2nd ches t tube. No significant residual pneumothorax. IMPRESSION: Re-expansion of the right lung status post 2nd chest tube placement. Reading location - IP/workstation name: [email or web address]
[2020-03-01] MEDS ORDERED: MORPHINE SULFATE 10 MG/ML INJ IV ONE (12:30)
[2020-03-01] MEDS: KETOROLAC TROMETHAMINE INJ/PF 30 MG/1 ML SDV IV SCH ×2 (13:03→22:15)
[2020-03-01] MEDS: ENOXAPARIN SODIUM INJ 40 MG/0.4 ML DISP.SYRIN SUBCUT SCH (13:07)
[2020-03-01 16:12] LABS: ABSOLUTE EOSINOPHILS # (AUTO) 0.1 10^3/uL (0.0-0.6); ABSOLUTE LYMPHOCYTES (AUTO) 1.6 10^3/uL (0.5-4.7); ABSOLUTE MONOCYTES (AUTO) 0.9 10^3/uL (0.1-1.4); ABSOLUTE NEUT (AUTO) 5.9 10^3/uL (1.7-8.2); BASOPHILS % (AUTO) 0.3 % (0-2); HEMATOCRIT 38.3 % (37.9-51.0); HEMOGLOBIN 13.2 g/dL (13.5-17.0); LYMPHOCYTES % (AUTO) 18.7 % (13-45); MEAN CORPUSCULAR HEMOGLOBIN 31.3 pg (27.0-33.4); MEAN CORPUSCULAR HGB CONC 34.6 g/dL (32.0-36.0); MEAN CORPUSCULAR VOLUME 90 fl (80-97); MONOCYTES % (AUTO) 10.8 % (3-13); PLATELET COUNT 244 10^3/uL (150-450); RED BLOOD COUNT 4.24 10^6/uL (4.35-5.55); RED CELL DISTRIBUTION WIDTH 11.9 % (11.5-14.0); SEGMENTED NEUTROPHILS % (AUTO) 69.2 % (42-78); TOTAL CELLS COUNTED % (AUTO) 100 %; WHITE BLOOD COUNT 8.6 10^3/uL (4.0-10.5)
--- NOTE | 2020-03-01 17:19 | PDOC PROGRESS REPORT ---
Subjective Progress Note for:: 03/01/20 Subjective:: Patient admitted for spontaneous pneumothorax on the right, status post chest tube placed by general surgery on admission. He also has untreated type 2 diabetes with blood sugars in the 400s on admission. 02/29/2020 Patient seems to be stable today although according to his chest x-ray he has incomplete resolution of his pneumothorax. I discussed the case with Dr. Mar today in detail and he is considering adding a second chest tube. Patient had a coronavirus test today which was negative. I discussed the potential plan with the patient and if he needs to go back to the OR he seems to be in agreement with this. I also answered multiple questions his had today and they have no current concerns. WBC elevated but I think this is most likely due to the pneumothorax itself along with the chest tube placement both of which are stressful events can cause leukocytosis without indicating an infection. Patient has no new complaints other than some very mild shortness of breath with exertion and expected chest pain at the chest tube insertion site. 03/01/2020 Patient had a second chest tube placed this morning after his chest x-ray showed progression of his right-sided pneumothorax. When I visited him today he already had his chest tube in place and stated he can breathe a bit better. His was also at bedside and we discussed the reasoning behind putting a second chest tube in. Also discussed with him the possibility the patient may need a VATS procedure in the near future with a pleurodesis. For now, we will hope that the second chest tube with some intermittent repositioning may be enough to reinflate his lungs in order to avoid invasive surgery. Other than some mild shortness of breath and increased pain at the site of his new chest tube, patient has no new complaints. Reason For Visit: SPONTANEOUS PNEUMOTHORAX Physical Exam Vital Signs: Temp Pulse Resp BP Pulse Ox 98.5 F 68 16 138/78 H 100 03/01/20 12:00 03/01/20 16:08 03/01/20 16:08 03/01/20 12:00 03/01/20 16:08 Intake & Output 02/29/20 03/01/20 03/02/20 06:59 06:59 06:59 Intake Total 2143 1820 260 Output Total 550 1500 400 Balance 1593 320 -140 Weight 104.2 kg 108.7 kg General appearance: PRESENT: no acute distress, well-developed, well-nourished Head exam: PRESENT: atraumatic, normocephalic Eye exam: PRESENT: conjunctiva pink Mouth exam: PRESENT: moist Respiratory exam: PRESENT: rales - Right side, other - [address] ABSENT: rhonchi, wheezes Cardiovascular exam: PRESENT: RRR. ABSENT: diastolic murmur, rubs, systolic murmur GI/Abdominal exam: PRESENT: normal bowel sounds, soft. ABSENT: distended, guarding, mass, organolmegaly, rebound, tenderness Neurological exam: PRESENT: alert, awake, oriented to person, oriented to place, oriented to time, oriented to situation Psychiatric exam: PRESENT: appropriate affect, normal mood Skin exam: PRESENT: dry, intact, warm Results Laboratory Results: 03/01/20 16:00 02/28/20 09:10 03/01/20 16:00 WBC 8.6 RBC 4.24 L Hgb 13.2 L Hct 38.3 MCV 90 MCH 31.3 MCHC 34.6 RDW 11.9 Plt Count 244 Seg Neutrophils % 69.2 Impressions: Chest CT 02/28/20 11:14 IMPRESSION: Persistent right anterior pneumothorax with right upper and lower lobe airspace disease either atelectasis or pneumonia. Minimal left basilar atelectasis. Chest X-Ray 03/01/20 00:00 IMPRESSION: Re-expansion of the right lung status post 2nd chest tube placement. Assessment and Plan - Diagnosis (1) Spontaneous pneumothorax Is this a current diagnosis for this admission?: Yes Plan: Impression: Hospital day 2 for obese [place]ro[place] male, diabetic uncontrolled, history of substance abuse, spontaneous pneumothorax with intermediate caliber chest tube inserted in the emergency department; persisting air leak through Pleur-evac. Recommendations: 1. I reviewed the chest x-ray from this morning. The sentinel hole of the chest tube is outside the chest. I reviewed the CT scan of the chest from 02/10/2020. This shows the chest tube to be in the major fissure with a per sisting apical and anterior pneumothorax. 2. I am concerned the current chest tube may not be adequate to get his lung reexpanded and a second chest tube may be required. 3. We will discuss with primary care team; will obtain a COVID test 02/29/2020 Right chest tube in place, discussed case with Dr. Mar who is considering placing a second chest tube COVID negative in case patient needs OR 03/01/2020 Second chest tube placed General surgery following May need VATS procedure (2) T2DM (type 2 diabetes mellitus) Qualifiers: Diabetes mellitus snf insulin use: with snf use Diabetes mellitus complication status: with neurologic complications Diabetes mellitus complication detail: with mononeuropathy Qualified Code(s): E11.41 - Type 2 diabetes mellitus with diabetic mononeuropathy; Z79.4 - retirement (current) use of insulin Is this a current diagnosis for this admission?: Yes Plan: Untreated for the past 10 years at least, blood sugar over 400 on admission Sliding scale insulin, Accu-Cheks Hemoglobin A1c Counseled on risks of untreated diabetes Foot exam showed multiple calluses without ulcerations Well-controlled on sliding scale insulin, continue, may be appropriate for oral therapy at discharge given his overall sensitivity to relatively low dose insulin 03/01/2020 Gave low-dose Lantus today, later increase the dose and give an additional 10 units Blood sugars running the mid 200s (3) Polysubstance abuse Is this a current diagnosis for this admission?: Yes (4) Smoker Is this a current diagnosis for this admission?: Yes - Time Time Spent with patient: 15-24 minutes Medications reviewed and adjusted accordingly: Yes Anticipated Discharge Disposition: Home, Self Care Anticipated Discharge Timeframe: within 72 hours - Inpatient Certification Based on my medical assessment, after consideration of the patient's comorbidities, presenting symptoms, or acuity I expect that the services needed warrant INPATIENT care.: Yes I certify that my determination is in accordance with my understanding of Medicare's requirements for reasonable and necessary INPATIENT services [42 CFR 412.3e].: Yes Medical Necessity: Significant Comorbidiites Make Outpatient Treatment Too Risky, Need Close Monitoring Due to Risk of Patient Decompensation, Need for Surgery, Risk of Complication if Not Cared For in Hospital, Risk of Diagnosis Which Will Require Inpatient Eval/Care/Monitoring
[2020-03-01] MEDS: INSULIN GLARGINE,HUM.REC.ANLOG 1,000 UNIT/10 ML VIAL SUBCUT SCH (17:47)
[2020-03-01] MEDS: FAMOTIDINE 20 MG TABLET PO SCH (22:15)
[2020-03-02] MEDS: OXYCODONE-ACETAMINOPHEN 5-325 MG TABLET PO PRN ×3 (02:43→17:24)
[2020-03-02 05:28] LABS: BLOOD UREA NITROGEN 8 mg/dL (7-20); CALCIUM 8.3 mg/dL (8.4-10.2); CARBON DIOXIDE 30 mmol/L (22-30); CHLORIDE 102 mmol/L (98-107); GLUCOSE 210 mg/dL (75-110)
[2020-03-02 05:35] LABS: ANION GAP 3 (5-19)
[2020-03-02] MEDS: KETOROLAC TROMETHAMINE INJ/PF 30 MG/1 ML SDV IV SCH ×3 (06:12→22:20)
--- NOTE | 2020-03-02 08:29 | PDOC PROGRESS REPORT ---
Subjective Progress Note for:: 03/02/20 Reason For Visit: SPONTANEOUS PNEUMOTHORAX Patient sitting up in bed, eating, feels better, no shortness of breath. Physical Exam Vital Signs: Temp Pulse Resp BP Pulse Ox 97.5 F 56 L 12 108/64 100 03/01/20 23:38 03/01/20 23:38 03/01/20 23:38 03/01/20 23:38 03/01/20 23:38 Intake & Output 03/01/20 03/02/20 03/03/20 06:59 06:59 06:59 Intake Total 1820 496 Output Total 1560 471 Balance 260 25 Weight 108.7 kg 108.7 kg General appearance: PRESENT: no acute distress Respiratory exam: PRESENT: other - Chest examined. Chest tubes in position. No evidence of subcutaneous emphysema. Both chest tubes to suction, no air leak demonstrated in either chamber Results Laboratory Results: 03/01/20 16:00 03/02/20 04:51 03/01/20 03/02/20 16:00 04:51 WBC 8.6 RBC 4.24 L Hgb 13.2 L Hct 38.3 MCV 90 MCH 31.3 MCHC 34.6 RDW 11.9 Plt Count 244 Seg Neutrophils % 69.2 Sodium 134.6 L Potassium 4.0 Chloride 102 Carbon Dioxide 30 Anion Gap 3 L BUN 8 Creatinine 0.63 Est GFR ( Amer) > 60 Glucose 210 H Calcium 8.3 L Impressions: Chest CT 02/28/20 11:14 IMPRESSION: Persistent right anterior pneumothorax with right upper and lower lobe airspace disease either atelectasis or pneumonia. Minimal left basilar atelectasis. Chest X-Ray 03/01/20 00:00 IMPRESSION: Re-expansion of the right lung status post 2nd chest tube placement. Assessment & Plan - Diagnosis (1) Spontaneous pneumothorax Is this a current diagnosis for this admission?: Yes Plan: Impression: Hospital day 4 status post spontaneous pneumothorax, with 2 chest tubes, now with no evidence of air leak, no evidence of subcutaneous emphysema Recommendations: 1. We will place first chest tube, the posterior lateral, to waterseal; keep the second anterior chest tube to suction,: The posterior lateral chest tube is still draining serous fluid 2. 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
--- NOTE | 2020-03-02 09:26 | RADIOLOGY REPORT (SQ) ---
EXAM DESCRIPTION: CHEST SINGLE VIEW IMAGES COMPLETED DATE/TIME: 03/02/2020 9:02 am REASON FOR STUDY: ptx COMPARISON: 03/01/2020 EXAM PARAMETERS: NUMBER OF VIEWS: One view. TECHNIQUE: Single frontal radiographic view of the chest acquired. RADIATION DOSE: NA LIMITATIONS: None. FINDINGS: LUNGS AND PLEURA: No pneumothorax. No pleural effusion. No new airspace disease. MEDIASTINUM AND HILAR STRUCTURES: Stable. HEART AND VASCULAR STRUCTURES: Heart normal in size. Normal vasculature. BONES: No acute findings. HARDWARE: Large bore right-sided chest tube, stable. Side port is external to the thoracic cavity. OTHER: Subcutaneous gas along the right chest wall, stable. IMPRESSION: Stable large bore right-sided chest tube with side port external to the thoracic cavity. No pneumothorax. TECHNICAL DOCUMENTATION: JOB ID: [id number] 2010 [employer]- All Rights Reserved Reading location - IP/workstation name: [email or web address]
[2020-03-02] MEDS: INSULIN LISPRO 100 UNIT/ML 3 ML VIAL SUBCUT SCH ×4 (09:37→22:20)
[2020-03-02] MEDS: INSULIN GLARGINE,HUM.REC.ANLOG 1,000 UNIT/10 ML VIAL SUBCUT SCH (09:38)
[2020-03-02] MEDS: FAMOTIDINE 20 MG TABLET PO SCH ×2 (09:39→22:20)
[2020-03-02] MEDS: DOCUSATE SODIUM 100 MG CAPSULE PO SCH ×2 (09:39→17:24)
[2020-03-02] MEDS: ENOXAPARIN SODIUM INJ 40 MG/0.4 ML DISP.SYRIN SUBCUT SCH (09:39)
[2020-03-02] MEDS: RINGERS SOLUTION,LACTATED 1,000 ML IV PRN (09:53)
[2020-03-02] MEDS ORDERED: INSULIN GLARGINE,HUM.REC.ANLOG 1,000 UNIT/10 ML VIAL SUBCUT SCH (10:00)
[2020-03-02] MEDS ORDERED: DEXTROSE 50%-WATER 25 GM/50 ML DISP.SYRIN IV PRN ×2 (17:29)
[2020-03-02] MEDS ORDERED: GLUCAGON,HUMAN RECOMB 1 MG INJ IM PRN (17:29)
[2020-03-02] MEDS ORDERED: DEXTROSE 40% GEL 15 GM TUBE PO PRN ×2 (17:29)
--- NOTE | 2020-03-02 17:36 | PDOC PROGRESS REPORT ---
Subjective Progress Note for:: 03/02/20 Subjective:: Patient states he feels well. The pain at the site of his chest tube is tolerable. He denies shortness of breath during encounter. He states he was on insulin before but stopped using it as he stopped seeing his provider. Reason For Visit: SPONTANEOUS PNEUMOTHORAX Physical Exam Vital Signs: Temp Pulse Resp BP Pulse Ox 98.0 F 62 14 118/71 100 03/02/20 16:13 03/02/20 16:13 03/02/20 16:13 03/02/20 16:13 03/02/20 16:13 Intake & Output 03/01/20 03/02/20 03/03/20 06:59 06:59 06:59 Intake Total 1820 1496 680 Output Total 1560 471 Balance 260 1025 680 Weight 108.7 kg 108.7 kg General appearance: PRESENT: no acute distress, cooperative Neck exam: ABSENT: JVD Respiratory exam: PRESENT: clear to auscultation alee, symmetrical, unlabored, other - 2 chest tubes present, lower chest tube on waterseal and upper chest tube connected to suction. ABSENT: tachypnea, wheezes Cardiovascular exam: PRESENT: RRR, +S1, +S2. ABSENT: tachycardia GI/Abdominal exam: PRESENT: soft. ABSENT: rebound, rigid, tenderness Neurological exam: PRESENT: alert, awake, oriented to person, oriented to place, oriented to time, oriented to situation Results Laboratory Results: 03/01/20 16:00 03/02/20 04:51 03/02/20 04:51 Sodium 134.6 L Potassium 4.0 Chloride 102 Carbon Dioxide 30 Anion Gap 3 L BUN 8 Creatinine 0.63 Est GFR ( Amer) > 60 Glucose 210 H Calcium 8.3 L Impressions: Chest CT 02/28/20 11:14 IMPRESSION: Persistent right anterior pneumothorax with right upper and lower lobe airspace disease either atelectasis or pneumonia. Minimal left basilar ate lectasis. Chest X-Ray 03/02/20 00:00 IMPRESSION: Stable large bore right-sided chest tube with side port external to the thoracic cavity. No pneumothorax. Assessment and Plan - Diagnosis (1) Spontaneous pneumothorax Is this a current diagnosis for this admission?: Yes Plan: Patient has 2 chest tubes in right lung. Upper chest tube currently connected to suction around -[id number] during my encounter this morning. No air leak noted on my exam. Lower larger bore chest tube draining serosanguineous fluid and only on waterseal. 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 Patient no longer uses his insulin and has not used it for several months now. I have explained to him that he will need to be back on insulin therapy. Blood glucose is still uncontrolled today and as such I will switch him from Lantus to premixed insulin 70/30 20 units in a.m. and 12 units in p.m. Will adjust as needed. Continue Accu-Cheks and sliding scale insulin. clinical unit educator consulted. (3) Polysubstance abuse Is this a current diagnosis for this admission?: Yes (4) Smoker Is this a current diagnosis for this admission?: Yes Plan: Smoking cessation encouraged - Time Time Spent with patient: 15-24 minutes Anticipated Discharge Disposition: Home, Self Care Anticipated Discharge Timeframe: within 48 hours
[2020-03-02] MEDS: HUM INSULIN NPH/REG INSULIN HM 100 UNIT/1 ML 3 ML SUBCUT SCH (19:50)
[2020-03-03] MEDS: KETOROLAC TROMETHAMINE INJ/PF 30 MG/1 ML SDV IV SCH ×3 (06:16→22:13)
[2020-03-03] MEDS: INSULIN LISPRO 100 UNIT/ML 3 ML VIAL SUBCUT SCH ×4 (09:25→22:13)
[2020-03-03] MEDS: FAMOTIDINE 20 MG TABLET PO SCH (09:30)
[2020-03-03] MEDS: OXYCODONE-ACETAMINOPHEN 5-325 MG TABLET PO PRN (09:31)
[2020-03-03] MEDS: DOCUSATE SODIUM 100 MG CAPSULE PO SCH (09:31)
[2020-03-03] MEDS: HUM INSULIN NPH/REG INSULIN HM 100 UNIT/1 ML 3 ML SUBCUT SCH ×2 (09:31→18:26)
[2020-03-03] MEDS: ENOXAPARIN SODIUM INJ 40 MG/0.4 ML DISP.SYRIN SUBCUT SCH (09:32)
--- NOTE | 2020-03-03 10:09 | RADIOLOGY REPORT (SQ) ---
EXAM DESCRIPTION: CHEST SINGLE VIEW IMAGES COMPLETED DATE/TIME: 03/03/2020 9:40 am REASON FOR STUDY: chest tube COMPARISON: 03/02/2020. EXAM PARAMETERS: NUMBER OF VIEWS: One view. TECHNIQUE: Single frontal radiographic view of the chest acquired. RADIATION DOSE: NA LIMITATIONS: None. FINDINGS: LUNGS AND PLEURA: No opacities, masses or pneumothorax. No pleural effusion. MEDIASTINUM AND HILAR STRUCTURES: No masses. Contour normal. HEART AND VASCULAR STRUCTURES: Heart normal in size. Normal vasculature. BONES: No acute findings. HARDWARE: Right side chest tube, unchanged. Distal end is within the thorax and proximal side hole i s within the soft tissues of the chest wall. OTHER: Right-sided subcutaneous emphysema, unchanged. No other significant finding. IMPRESSION: NO SIGNIFICANT INTERVAL CHANGE. CHEST TUBE DESCRIBED. NO PNEUMOTHORAX. TECHNICAL DOCUMENTATION: JOB ID: [id number] 2010 [employer]- All Rights Reserved Reading location - IP/workstation name: [email or web address]
--- NOTE | 2020-03-03 11:06 | PDOC PROGRESS REPORT ---
Subjective Progress Note for:: 03/03/20 Subjective:: no complaints, no sob Reason For Visit: SPONTANEOUS PNEUMOTHORAX Physical Exam Vital Signs: Temp Pulse Resp BP Pulse Ox 98.0 F 64 18 129/79 H 100 03/02/20 23:34 03/02/20 23:34 03/02/20 23:34 03/02/20 23:34 03/02/20 23:34 Intake & Output 03/02/20 03/03/20 03/04/20 06:59 06:59 06:59 Intake Total 1496 2780 Output Total 471 118 Balance 1025 2662 Weight 108.7 kg 110.9 kg General appearance: PRESENT: no acute distress Head exam: PRESENT: normocephalic Eye exam: PRESENT: EOMI Ear exam: PRESENT: normal external ear exam Mouth exam: PRESENT: moist Neck exam: PRESENT: full ROM Respiratory exam: PRESENT: clear to auscultation alee Cardiovascular exam: PRESENT: RRR Pulses: PRESENT: normal radial pulses, normal femoral pulses Vascular exam: PRESENT: normal capillary refill Breast: PRESENT: Normal GI/Abdominal exam: PRESENT: soft Rectal exam: PRESENT: deferred Extremities exam: PRESENT: full ROM Musculoskeletal exam: PRESENT: full ROM Neurological exam: PRESENT: alert, awake, oriented to person, oriented to place Psychiatric exam: PRESENT: appropriate affect Skin exam: PRESENT: dry Results Laboratory Results: 03/01/20 16:00 03/02/20 04:51 Impressions: Chest CT 02/28/20 11:14 IMPRESSION: Persistent right anterior pneumothorax with right upper and lower lobe airspace disease either atelectasis or pneumonia. Minimal left basilar atelectasis. Chest X-Ray 03/03/20 07:53 IMPRESSION: NO SIGNIFICANT INTERVAL CHANGE. CHEST TUBE DESCRIBED. NO PNEUMOTHORAX. Assessment & Plan - Time Time Spent: 30 to 50 Minutes Critical Time spent with patient: 15-24 minutes Smoking Cessation Education: 3 to 10 minutes Medications reviewed and adjusted accordingly: No Anticipated Discharge Disposition: unk Anticipated Discharge Timeframe: unk - Plan Summary Plan Summary: cxr this am show no ptx large lower post ct on waterseal overnight will remove post chest tube
--- NOTE | 2020-03-03 13:23 | RADIOLOGY REPORT (SQ) ---
EXAM DESCRIPTION: CHEST SINGLE VIEW IMAGES COMPLETED DATE/TIME: 03/03/2020 1:11 pm REASON FOR STUDY: CHEST TUBE REMOVED COMPARISON: 03/03/2020 EXAM PARAMETERS: NUMBER OF VIEWS: One view. TECHNIQUE: Single frontal radiographic view of the chest acquired. RADIATION DOSE: NA LIMITATIONS: None. FINDINGS: LUNGS AND PLEURA: No pneumothorax status post chest tube removal. MEDIASTINUM AND HILAR STRUCTURES: No masses. Contour normal. HEART AND VASCULAR STRUCTURES: Heart normal in size. Normal vasculature. BONES: No acute findings. HARDWARE: None in the chest. OTHER: Small amount of subcutaneous emphysema on the right. IMPRESSION: No pneumothorax status post chest tube removal. TECHNICAL DOCUMENTATION: JOB ID: [id number] 2010 [employer]- All Rights Reserved Reading location - IP/workstation name: [email or web address]
--- NOTE | 2020-03-03 16:07 | PDOC PROGRESS REPORT ---
Subjective Progress Note for:: 03/03/20 Subjective:: Patient feels well today. No shortness of breath. Denies chest pain. Has mild pain at the site of the chest tube entry but tolerable. Reason For Visit: SPONTANEOUS PNEUMOTHORAX Physical Exam Vital Signs: Temp Pulse Resp BP Pulse Ox 97.9 F 71 18 133/70 H 100 03/03/20 11:32 03/03/20 11:32 03/03/20 11:32 03/03/20 11:32 03/03/20 11:32 Intake & Output 03/02/20 03/03/20 03/04/20 06:59 06:59 06:59 Intake Total 1496 2780 Output Total 471 118 Balance 1025 2662 Weight 108.7 kg 110.9 kg General appearance: PRESENT: no acute distress, cooperative Neck exam: ABSENT: JVD Respiratory exam: PRESENT: clear to auscultation alee, symmetrical, unlabored. ABSENT: tachypnea, wheezes Neurological exam: PRESENT: alert, awake, oriented to person, oriented to place, oriented to time Psychiatric exam: ABSENT: agitated, anxious Results Laboratory Results: 03/01/20 16:00 03/02/20 04:51 Impressions: Chest CT 02/28/20 11:14 IMPRESSION: Persistent right anterior pneumothorax with right upper and lower lobe airspace disease either atelectasis or pneumonia. Minimal left basilar atelectasis. Chest X-Ray 03/03/20 07:53 IMPRESSION: NO SIGNIFICANT INTERVAL CHANGE. CHEST TUBE DESCRIBED. NO PNEUMOTHORAX. Assessment and Plan - Diagnosis (1) Spontaneous pneumothorax Is this a current diagnosis for this admission?: Yes Plan: Right lung Upper chest tube currently connected to suction around -[id number] during my encounter this morning. No air leak noted today as well. Likely should be able to remove this 1 tomorrow as well. Lower larger bore chest tube was removed today. Post removal x-ray shows no pneumothorax. 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 Patient's blood sugar seems much better controlled on premixed insulin 70/30 20 units in a.m. and 12 units with dinner. Continue to monitor Accu-Cheks. Sliding scale insulin be provided. (3) Polysubstance abuse Is this a current diagnosis for this admission?: Yes (4) Smoker Is this a current diagnosis for this admission?: Yes - Time Time Spent with patient: Less than 15 minutes Anticipated Discharge Disposition: Home, Self Care Anticipated Discharge Timeframe: within 36 hours
[2020-03-03 16:15] LABS: ABSOLUTE EOSINOPHILS # (AUTO) 0.2 10^3/uL (0.0-0.6); ABSOLUTE LYMPHOCYTES (AUTO) 1.5 10^3/uL (0.5-4.7); ABSOLUTE MONOCYTES (AUTO) 0.6 10^3/uL (0.1-1.4); ABSOLUTE NEUT (AUTO) 5.5 10^3/uL (1.7-8.2); BASOPHILS % (AUTO) 0.4 % (0-2); HEMATOCRIT 36.9 % (37.9-51.0); HEMOGLOBIN 12.4 g/dL (13.5-17.0); LYMPHOCYTES % (AUTO) 18.9 % (13-45); MEAN CORPUSCULAR HEMOGLOBIN 30.8 pg (27.0-33.4); MEAN CORPUSCULAR HGB CONC 33.6 g/dL (32.0-36.0); MEAN CORPUSCULAR VOLUME 92 fl (80-97); MONOCYTES % (AUTO) 8.1 % (3-13); PLATELET COUNT 271 10^3/uL (150-450); RED BLOOD COUNT 4.02 10^6/uL (4.35-5.55); RED CELL DISTRIBUTION WIDTH 12.2 % (11.5-14.0); SEGMENTED NEUTROPHILS % (AUTO) 70.6 % (42-78); TOTAL CELLS COUNTED % (AUTO) 100 %; WHITE BLOOD COUNT 7.9 10^3/uL (4.0-10.5)
[2020-03-04] MEDS: KETOROLAC TROMETHAMINE INJ/PF 30 MG/1 ML SDV IV SCH ×3 (06:15→21:52)
[2020-03-04] MEDS: INSULIN LISPRO 100 UNIT/ML 3 ML VIAL SUBCUT SCH ×4 (07:51→21:37)
[2020-03-04] MEDS: HUM INSULIN NPH/REG INSULIN HM 100 UNIT/1 ML 3 ML SUBCUT SCH ×2 (10:19→16:56)
--- NOTE | 2020-03-04 10:48 | PDOC PROGRESS REPORT ---
Subjective Progress Note for:: 03/04/20 Subjective:: 45-year-old male with a spontaneous right-sided pneumothorax. Patient denies any chest pain or shortness of breath today. His lower chest tube was removed yesterday. He also denies headache, fevers, chills, nausea, vomiting, melena, hematochezia, abdominal pain. Reason For Visit: SPONTANEOUS PNEUMOTHORAX Physical Exam Vital Signs: Temp Pulse Resp BP Pulse Ox 97.8 F 58 L 16 117/68 100 03/04/20 07:25 03/04/20 07:25 03/04/20 07:25 03/04/20 07:25 03/04/20 07:25 Intake & Output 03/03/20 03/04/20 03/05/20 06:59 06:59 06:59 Intake Total 2780 1350 240 Output Total 118 10 Balance 2662 1340 240 Weight 110.9 kg 110 kg General appearance: PRESENT: no acute distress, cooperative Head exam: PRESENT: atraumatic, normocephalic Eye exam: PRESENT: EOMI, PERRLA. ABSENT: scleral icterus Mouth exam: PRESENT: moist, neck supple Neck exam: ABSENT: meningismus, tenderness, thyromegaly, tracheal deviation Respiratory exam: PRESENT: unlabored, other - small bore anterior chest tube to suction without air-leak. ABSENT: tachypnea, wheezes Cardiovascular exam: ABSENT: tachycardia Vascular exam: PRESENT: normal capillary refill GI/Abdominal exam: PRESENT: soft. ABSENT: rebound, rigid, tenderness Rectal exam: PRESENT: deferred Extremities exam: ABSENT: clubbing Neurological exam: PRESENT: alert, awake, oriented to person, oriented to place, oriented to time, oriented to situation, CN II-XII grossly intact. ABSENT: motor sensory deficit Psychiatric exam: ABSENT: agitated, anxious, depressed Focused psych exam: ABSENT: delusional Skin exam: ABSENT: cyanosis, erythema, jaundice Results Laboratory Results: 03/03/20 16:03 03/02/20 04:51 03/03/20 16:03 WBC 7.9 RBC 4.02 L Hgb 12.4 L Hct 36.9 L MCV 92 MCH 30.8 MCHC 33.6 RDW 12.2 Plt Count 271 Seg Neutrophils % 70.6 Impressions: Chest CT 02/28/20 11:14 IMPRESSION: Persistent right anterior pneumothorax with right upper and lower lobe airspace disease either atelectasis or pneumonia. Minimal left basilar atelectasis. Chest X-Ray 03/03/20 07:53 IMPRESSION: NO SIGNIFICANT INTERVAL CHANGE. CHEST TUBE DESCRIBED. NO PNEUMOTHORAX. Assessment & Plan - Diagnosis (1) Spontaneous pneumothorax Is this a current diagnosis for this admission?: Yes - Time Anticipated Discharge Disposition: Home, Self Care Anticipated Discharge Timeframe: within 24 hours - Plan Summary Plan Summary: 45-year-old male status post multiple chest tube insertion for spontaneous pneumothorax that has been persistent. At this time, his air leak has sealed. He has minimal chest tube output. He has no shortness of breath or chest pain. I will place the chest tube to waterseal today. Plan for chest x-ray in several hours. As long as air leak remains sealed and the pneumothorax is not appreciable on chest x-ray, plan to remove chest tube this afternoon. I have discussed this with the patient at length. He is in agreement with the treatment plan. If all goes well, possibly home tomorrow.
--- NOTE | 2020-03-04 14:16 | PDOC PROGRESS REPORT ---
Subjective Progress Note for:: 03/04/20 Subjective:: Patient doing well today. Has no complaints at the moment Reason For Visit: SPONTANEOUS PNEUMOTHORAX Physical Exam Vital Signs: Temp Pulse Resp BP Pulse Ox 98.2 F 63 18 141/78 H 100 03/04/20 11:34 03/04/20 11:34 03/04/20 11:34 03/04/20 11:34 03/04/20 11:34 Intake & Output 03/03/20 03/04/20 03/05/20 06:59 06:59 06:59 Intake Total 2780 1350 240 Output Total 118 10 Balance 2662 1340 240 Weight 110.9 kg 110 kg General appearance: PRESENT: no acute distress, cooperative Neck exam: ABSENT: JVD Respiratory exam: PRESENT: clear to auscultation alee, unlabored Neurological exam: PRESENT: alert, awake, oriented to person, oriented to place, oriented to time Results Laboratory Results: 03/03/20 16:03 03/02/20 04:51 03/03/20 16:03 WBC 7.9 RBC 4.02 L Hgb 12.4 L Hct 36.9 L MCV 92 MCH 30.8 MCHC 33.6 RDW 12.2 Plt Count 271 Seg Neutrophils % 70.6 Impressions: Chest CT 02/28/20 11:14 IMPRESSION: Persistent right anterior pneumothorax with right upper and lower lobe airspace disease either atelectasis or pneumonia. Minimal left basilar atelectasis. Chest X-Ray 03/03/20 07:53 IMPRESSION: NO SIGNIFICANT INTERVAL CHANGE. CHEST TUBE DESCRIBED. NO PNEUMOTHORAX. Assessment and Plan - Diagnosis (1) Spontaneous pneumothorax Is this a current diagnosis for this admission?: Yes Plan: Right lung Upper chest tube-suction discontinued today chest tube placed to waterseal. Repeat chest x-ray in a few hours. Hopefully if pneumothorax remains resolved then chest tube will be taken out patient could probably go home tomorrow as per surgery. 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 Patient's blood sugar seems much better controlled on premixed insulin 70/30 20 units in a.m. and 12 units with dinner. Continue to monitor Accu-Cheks. Sliding scale insulin be provided. (3) Polysubstance abuse Is this a current diagnosis for this admission?: Yes (4) Smoker Is this a current diagnosis for this admission?: Yes - Time Time Spent with patient: Less than 15 minutes Anticipated Discharge Disposition: Home, Self Care Anticipated Discharge Timeframe: within 24 hours
--- NOTE | 2020-03-04 14:17 | PDOC CONSULTATION ---
Consultation Consult Date: 03/04/20 Provider Consulted: CAMERON PARK Consult reason:: Pneumothorax History of Present Illness Admission Date/PCP: 02/28/20 11:59 History of Present Illness: VIN CUENCA is a 45 year old male no previous medical history except for diabetes was at home became acutely short of breath and subsequently presented to emergency room was found to have a pneumothorax chest tubes were placed 1 chest tube is been removed and the second chest tube remains there does not appear to be any air leak at this time. He denies shortness of breath dyspnea on exertion cough hemoptysis PPD status negative dates unknown no history of chronic lung disease as a child or adolescent. He did not admits to exposure to large amounts of passive smoke as a child as well as an adult. He himself smoked 1 to 1-1/2 packs a day per 25 years. He denies any significant occupational exposure to potential respiratory toxins. He has 1 pet dog he denies any recent travel. He denies angina-like chest pain sleeps on 2 pillows denies PND nocturnal cough or edema he is unaware of any snoring denies restless sleep nocturia unrestful sleep or excessive daytime somnolence. Past Medical History Cardiac Medical History: Denies: Congestive Heart Failure, Myocardial Infarction, Hypertension Pulmonary Medical History: Denies: Asthma, Bronchitis, Chronic Obstructive Pulmonary Disease (COPD), Pneumonia, Tuberculosis EENT Medical History: Reports: None Neurological Medical History: Denies: Migraine, Seizures Endocrine Medical History: Reports: Diabetes Mellitus Type 2 - unmedicated Renal/ Medical History: Denies: End Stage Renal Disease, Nephrolithiasis Malignancy Medical History: Reports: None GI Medical History: Denies: Cirrhosis, Crohn's Disease, Gastroesophageal Reflux Disease, Ulcerative Colitis Musculoskeltal Medical History: Denies: Arthritis Skin Medical History: Denies: Eczema, Psoriasis Psychiatric Medical History: Reports: Tobacco Dependency Denies: Bipolar Disorder, Depression Traumatic Medical History: Denies: Traumatic Brain Injury Hematology: Denies: Anemia, Bleeding Tendencies Infectious Medical History: Denies: Clostridium Difficile, Hepatitis B, Hepatitis C Past Surgical History Past Surgical History: Reports: Cholecystectomy Social History Information Source: Patient, [facility] Records Smoking Status: Current Every Day Smoker Cigarettes Packs Per Day: 1 Number of Years Smokin Passive smoke exposure as: Both Hx Recreational Drug Use: Yes Drugs: Cocaine, Marijuana Hx Prescription Drug Abuse: No Do you have pets?: Yes Have you had any respiratory illnesses as a child?: No Have you been exposed to any sick contacts recently?: No Have you had any recent respiratory illnesses?: No Have you travelled outside of [place] in the past 12 months?: No - Advance Directive Resuscitation Status: Do Not Resuscitate Family History Family History: DM, Malignancy Parental Family History Reviewed: Yes Children Family History Reviewed: Yes Sibling(s) Family History Reviewed.: Yes Medication/Allergy Home Medications: No Home Medications 12/11/18 Allergies/Adverse Reactions: avocado Allergy (Verified 12/10/18 17:03) banana Allergy (Verified 12/10/18 17:03) tropical fruit Allergy (Uncoded 12/10/18 17:03) Review of Systems All systems: reviewed and no additional remarkable complaints except as stated Physical Exam Vital Signs: Temp Pulse Resp BP Pulse Ox 98.2 F 63 18 141/78 H 100 03/04/20 11:34 03/04/20 11:34 03/04/20 11:34 03/04/20 11:34 03/04/20 11:34 Intake & Output 03/03/20 03/04/20 03/05/20 06:59 06:59 06:59 Intake Total 2780 1350 240 Output Total 118 10 Balance 2662 1340 240 Weight 110.9 kg 110 kg General appearance: PRESENT: no acute distress, cooperative, disheveled, well- developed, well-nourished Head exam: PRESENT: atraumatic, normocephalic Eye exam: PRESENT: conjunctiva pale, EOMI. ABSENT: nystagmus, periorbital swelling, scleral icterus Mouth exam: PRESENT: dry mucosa, neck supple, tongue midline Neck exam: ABSENT: carotid bruit, full ROM, JVD, lymphadenopathy, meningismus, tenderness, thyromegaly, tracheal deviation, tracheostomy, other Respiratory exam: PRESENT: prolonged expiratory phas, rhonchi, symmetrical, unlabored. ABSENT: decreased breath sounds, rales, retraction, stridor, tachypnea, wheezes Cardiovascular exam: PRESENT: RRR, +S1, +S2. ABSENT: systolic murmur, tachycardia Pulses: ABSENT: normal radial pulses GI/Abdominal exam: PRESENT: soft. ABSENT: guarding, mass, rebound, tenderness Extremities exam: PRESENT: full ROM. ABSENT: calf tenderness, clubbing, joint swelling, pedal edema Musculoskeletal exam: ABSENT: deformity, dislocation Neurological exam: PRESENT: alert, awake Psychiatric exam: PRESENT: appropriate affect Skin exam: PRESENT: dry, warm Results Laboratory Results: 03/03/20 16:03 03/02/20 04:51 03/03/20 16:03 WBC 7.9 RBC 4.02 L Hgb 12.4 L Hct 36.9 L MCV 92 MCH 30.8 MCHC 33.6 RDW 12.2 Plt Count 271 Seg Neutrophils % 70.6 Impressions: Chest CT 02/28/20 11:14 IMPRESSION: Persistent right anterior pneumothorax with right upper and lower lobe airspace disease either atelectasis or pneumonia. Minimal left basilar atelectasis. Chest X-Ray 03/03/20 07:53 IMPRESSION: NO SIGNIFICANT INTERVAL CHANGE. CHEST TUBE DESCRIBED. NO PNEUMOTHORAX. Assessment & Plan - Diagnosis (1) Smoker Is this a current diagnosis for this admission?: Yes Plan: Stop smoking discussed at length risk and dangers associated with continued tobacco use (2) Spontaneous pneumothorax Is this a current diagnosis for this admission?: Yes Plan: Connective tissue disease work-up Stop smoking Follow work-up in the office - Time Time Spent with patient: 50 min Time Spent: 30 to 50 Minutes
--- NOTE | 2020-03-04 18:22 | RADIOLOGY REPORT (SQ) ---
EXAM DESCRIPTION: CHEST SINGLE VIEW IMAGES COMPLETED DATE/TIME: 03/04/2020 5:59 pm REASON FOR STUDY: eval PTX COMPARISON: 03/03/2020 EXAM PARAMETERS: NUMBER OF VIEWS: One view. TECHNIQUE: Single frontal radiographic view of the chest acquired. RADIATION DOSE: NA LIMITATIONS: None. FINDINGS: LUNGS AND PLEURA: No opacities, masses or pneumothorax. No pleural effusion. MEDIASTINUM AND HILAR STRUCTURES: No masses. Contour normal. HEART AND VASCULAR STRUCTURES: Heart normal in size. Normal vasculature. BONES: No acute findings. HARDWARE: None in the chest. OTHER: No other significant finding. IMPRESSION: NO ACUTE RADIOGRAPHIC FINDING IN THE CHEST. TECHNICAL DOCUMENTATION: JOB ID: [id number] 2010 [employer]- All Rights Reserved Reading location - IP/workstation name: [email or web address]
[2020-03-05] MEDS: KETOROLAC TROMETHAMINE INJ/PF 30 MG/1 ML SDV IV SCH (05:27)
[2020-03-05] MEDS: INSULIN LISPRO 100 UNIT/ML 3 ML VIAL SUBCUT SCH ×2 (07:55→11:45)
[2020-03-05] MEDS: HUM INSULIN NPH/REG INSULIN HM 100 UNIT/1 ML 3 ML SUBCUT SCH (07:57)
--- NOTE | 2020-03-05 09:46 | RADIOLOGY REPORT (SQ) ---
EXAM DESCRIPTION: CHEST SINGLE VIEW IMAGES COMPLETED DATE/TIME: 03/05/2020 9:11 am REASON FOR STUDY: chest tube removal, eval for PTX COMPARISON: None. EXAM PARAMETERS: NUMBER OF VIEWS: One view. TECHNIQUE: Single frontal radiographic view of the chest acquired. RADIATION DOSE: NA LIMITATIONS: None. FINDINGS: LUNGS AND PLEURA: No opacities, masses or pneumothorax. No pleural effusion. MEDIASTINUM AND HILAR STRUCTURES: No masses. Contour normal. HEART AND VASCULAR STRUCTURES: Heart normal in size. Normal vasculature. BONES: No acute findings. HARDWARE: None in the chest. OTHER: Unchanged gas right lateral chest wall. IMPRESSION: No pneumothorax. TECHNICAL DOCUMENTATION: JOB ID: [id number] 2010 [employer]- All Rights Reserved Reading location - IP/workstation name: [email or web address]
--- NOTE | 2020-03-05 11:32 | PDOC DISCHARGE SUMMARY ---
Impression - Admit/DC Date/PCP Admission Date/Primary Care Provider: 02/28/20 11:59 Discharge Date: 03/05/20 - Discharge Diagnosis (1) Spontaneous pneumothorax Is this a current diagnosis for this admission?: Yes (2) T2DM (type 2 diabetes mellitus) Is this a current diagnosis for this admission?: Yes (3) Polysubstance abuse Is this a current diagnosis for this admission?: Yes (4) Smoker Is this a current diagnosis for this admission?: Yes - Additional Information Resuscitation Status: Do Not Resuscitate Discharge Diet: Diabetic Referrals: [facility] [Provider Group] - 03/17/20 8:30 am [facility] [Provider Group] - 03/16/20 8:00 am CAMERON PARK MD [ACTIVE STAFF] - 03/12/20 8:30 am Prescriptions: Hum Insulin NPH/Reg Insulin Hm [Insulin 70-30 (NPH/Reg) 100 unit/mL] See Protocol SUBCUT BIDACBS #10 ml Home Medications: Hum Insulin NPH/Reg Insulin Hm [Insulin 70-30 (NPH/Reg) 100 unit/mL] See Protocol SUBCUT BIDACBS #10 ml 03/05/20 History of Present Illiness History of Present Illness: According to admitting provider: VIN CUENCA is a 45 year old male with past medical history significant for T2DM, tobacco abuse, marijuana abuse who presents with a 2-day history of progressive right-sided chest pain which began after patient had a coughing fit while smoking marijuana 1 day prior to admission. Patient states he has been smoking cigarettes marijuana for many years with no intention to quit. Patient came to ED where he had a chest tube placed in his right chest by general surgery. Dr. Bucio is been consulted and will follow the patient during admission. He was counseled on cessation. Patient states he also has untreated diabetes because he took himself off his medications approximately 10 years ago because he did not like the way his medications made him feel. He also stopped checking his blood sugar. Blood sugar on admission was greater than 400 patient was started on insulin sliding scale and Accu-Cheks. Hospital Course Hospital Course: Patient was admitted to the hospital after being found to have spontaneous pneumothorax involving his right side as noted on chest imaging. He did have a chest CT and chest x-ray done which demonstrated this. Patient was also noted at the time to have significant hyperglycemia with blood sugars of 400. Patient has not been on insulin for over a year now. Hemoglobin A1c was found to be 10.3. Regarding patient's spontaneous right-sided pneumothorax, he was placed on nasal cannula for treatment of this even though he was never documented to be hypoxic. He was seen by surgery who placed a chest tube. Repeat chest x-ray showed referred chest tube was in the fissure and as such a second chest tube had to be placed into patient's upper pleura. Chest tubes were placed to suction initially and then de-escalated to waterseal. Repeat chest x-rays were performed which showed gradual resolution of the pneumothorax. His first chest tube was removed 2 days ago and his second chest tube was removed yesterday because he had showed no evidence of air leak for the past 2 days and chest x- rays have shown no pneumothorax. Repeat chest x-ray this morning still shows no pneumothorax. Regarding his diabetes, he has been started on insulin 70/30 20 units in the morning and 12 units in the night before dinner which has been very effective at controlling his diabetes while in-house. I will discharge patient with prescription from the insulin as well as glucometer, test strips, lancets/lancet device insulin syringes and needles. Patient has also received diabetes education. He is familiar with using insulin as he has used this in e past. Patient has been made for follow-up appointments outpatient with pulmonology for work-up of etiology of his spontaneous pneumothorax, surgery and has been set up with a primary care provider. Physical Exam Vital Signs: Temp Pulse Resp BP Pulse Ox 98.1 F 59 L 16 125/68 100 03/05/20 08:13 03/05/20 08:13 03/05/20 08:13 03/05/20 08:13 03/05/20 08:13 Intake & Output 03/04/20 03/05/20 03/06/20 06:59 06:59 06:59 Intake Total 1350 821 Output Total 10 0 Balance 1340 821 Weight 110 kg 110 kg General appearance: PRESENT: no acute distress, cooperative Neck exam: ABSENT: JVD Respiratory exam: PRESENT: clear to auscultation alee, symmetrical, unlabored. ABSENT: tachypnea, wheezes Neurological exam: PRESENT: alert, awake, oriented to person, oriented to place, oriented to time, oriented to situation Results Laboratory Results: WBC 7.9 10^3/uL (4.0-10.5) 03/03/20 16:03 RBC 4.02 10^6/uL (4.35-5.55) L 03/03/20 16:03 Hgb 12.4 g/dL (13.5-17.0) L 03/03/20 16:03 Hct 36.9 % (37.9-51.0) L 03/03/20 16:03 MCV 92 fl (80-97) 03/03/20 16:03 MCH 30.8 pg (27.0-33.4) 03/03/20 16:03 MCHC 33.6 g/dL (32.0-36.0) 03/03/20 16:03 RDW 12.2 % (11.5-14.0) 03/03/20 16:03 Plt Count 271 10^3/uL (150-450) 03/03/20 16:03 Lymph % (Auto) 18.9 % (13-45) 03/03/20 16:03 [place] % (Auto) 8.1 % (3-13) 03/03/20 16:03 Eos % (Auto) 2.0 % (0-6) 03/03/20 16:03 Baso % (Auto) 0.4 % (0-2) 03/03/20 16:03 Absolute Neuts (auto) 5.5 10^3/uL (1.7-8.2) 03/03/20 16:03 Absolute Lymphs (auto) 1.5 10^3/uL (0.5-4.7) 03/03/20 16:03 Absolute Monos (auto) 0.6 10^3/uL (0.1-1.4) 03/03/20 16:03 Absolute Eos (auto) 0.2 10^3/uL (0.0-0.6) 03/03/20 16:03 Absolute Basos (auto) 0.0 10^3/uL (0.0-0.2) 03/03/20 16:03 Seg Neutrophils % 70.6 % (42-78) 03/03/20 16:03 PT 13.1 SEC (11.4-15.4) 02/28/20 09:10 INR 0.97 02/28/20 09:10 APTT 28.0 SEC (23.5-35.8) 02/28/20 09:10 Carbonic Acid 1.43 mmol/L (1.05-1.35) H 02/28/20 09:14 HCO3/H2CO3 Ratio 18:1 02/28/20 09:14 ABG pH 7.36 (7.35-7.45) 02/28/20 09:14 ABG pCO2 47.5 mmHg (35-45) H 02/28/20 09:14 ABG pO2 262.7 mmHg (80-100) H 02/28/20 09:14 ABG HCO3 26.1 mmol/L (20-24) H 02/28/20 09:14 ABG Total CO2 27.5 mmol/L (23-27) H 02/28/20 09:14 ABG O2 Saturation 99.6 % (94-98) H 02/28/20 09:14 ABG Base Excess 0 mmol/L 02/28/20 09:14 FiO2 15L 02/28/20 09:14 Sodium 134.6 mmol/L (137-145) L 03/02/20 04:51 Potassium 4.0 mmol/L (3.6-5.0) 03/02/20 04:51 Chloride 102 mmol/L (98-107) 03/02/20 04:51 Carbon Dioxide 30 mmol/L (22-30) 03/02/20 04:51 Anion Gap 3 (5-19) L 03/02/20 04:51 BUN 8 mg/dL (7-20) 03/02/20 04:51 Creatinine 0.63 mg/dL (0.52-1.25) 03/02/20 04:51 Est GFR ( Amer) > 60 (>60) 03/02/20 04:51 Est GFR (MDRD) Non-Af > 60 (>60) 03/02/20 04:51 Glucose 210 mg/dL (75-110) H 03/02/20 04:51 POC Glucose 169 mg/dL (70-110) H 03/05/20 06:47 Hemoglobin A1c % 10.3 % (4.7-6.0) H 02/29/20 05:21 Calcium 8.3 mg/dL (8.4-10.2) L 03/02/20 04:51 Phosphorus 3.6 mg/dL (2.5-4.5) 02/29/20 05:21 Magnesium 1.8 mg/dL (1.6-2.3) 02/29/20 05:21 Total Bilirubin 1.3 mg/dL (0.2-1.3) 02/28/20 09:10 Direct Bilirubin 0.0 mg/dL (0.0-0.4) 02/28/20 09:10 Neonat Total Bilirubin Not Reportable 02/28/20 09:10 Neonat Direct Bilirubin Not Reportable 02/28/20 09:10 Neonat Indirect Bili Not Reportable 02/28/20 09:10 AST 23 U/L (17-59) 02/28/20 09:10 ALT 29 U/L (<50) 02/28/20 09:10 Alkaline Phosphatase 88 U/L (38-126) 02/28/20 09:10 Total Protein 7.6 g/dL (6.3-8.2) 02/28/20 09:10 Albumin 4.6 g/dL (3.5-5.0) 02/28/20 09:10 Beta-Hydroxybutyrate 0.9 mg/dL (.) 02/28/20 09:10 SARS-CoV-2 (PCR) NEGATIVE (NEGATIVE) 02/29/20 09:30 Impressions: Chest X-Ray 02/28/20 09:54 IMPRESSION: Interval placement of a large-bore right-sided chest tube with re- expansion of the pneumothorax. Patchy linear opacities are present the right upper lobe, right mid lung field right base most likely atelectasis. Chest CT 02/28/20 11:14 IMPRESSION: Persistent right anterior pneumothorax with right upper and lower lobe airspace disease either atelectasis or pneumonia. Minimal left basilar atelectasis. Chest X-Ray 02/29/20 08:00 IMPRESSION: The right chest tube has repositioned with side hole now outside of the pleural space, with resulting small right pneumothorax. Chest X-Ray 03/01/20 00:00 IMPRESSION: Increasing now moderate right pneumothorax. Chest tube malpositioned with side hole outside the hemithorax. Chest X-Ray 03/01/20 00:00 IMPRESSION: Re-expansion of the right lung status post 2nd chest tube placemen t. Chest X-Ray 03/02/20 00:00 IMPRESSION: Stable large bore right-sided chest tube with side port external to the thoracic cavity. No pneumothorax. Chest X-Ray 03/03/20 00:00 IMPRESSION: No pneumothorax status post chest tube removal. Chest X-Ray 03/03/20 07:53 IMPRESSION: NO SIGNIFICANT INTERVAL CHANGE. CHEST TUBE DESCRIBED. NO PNEUMOTHORAX. Chest X-Ray 03/04/20 14:00 IMPRESSION: NO ACUTE RADIOGRAPHIC FINDING IN THE CHEST. Chest X-Ray 03/05/20 06:00 IMPRESSION: No pneumothorax. Plan Time Spent: Less than 30 Minutes Stroke Is this a Stroke Patient?: No Acute Heart Failure - Is this a Heart Failure Patient?: No
[2020-03-05 11:35] VITALS: BP 118/68
--- NOTE | 2020-03-05 11:48 | PDOC PROGRESS REPORT ---
Subjective Progress Note for:: 03/05/20 Subjective:: 45-year-old male with a spontaneous right-sided pneumothorax. Patient denies any chest pain or shortness of breath today. His upper chest tube was removed yesterday. He also denies headache, fevers, chills, nausea, vomiting, melena, hematochezia, abdominal pain. Reason For Visit: SPONTANEOUS PNEUMOTHORAX Physical Exam Vital Signs: Temp Pulse Resp BP Pulse Ox 98.1 F 59 L 16 118/68 100 03/05/20 11:32 03/05/20 11:32 03/05/20 11:32 03/05/20 11:32 03/05/20 11:32 Intake & Output 03/04/20 03/05/20 03/06/20 06:59 06:59 06:59 Intake Total 1350 821 Output Total 10 0 Balance 1340 821 Weight 110 kg 110 kg General appearance: PRESENT: no acute distress, cooperative Head exam: PRESENT: atraumatic, normocephalic Eye exam: PRESENT: EOMI, PERRLA. ABSENT: scleral icterus Mouth exam: PRESENT: moist, neck supple Neck exam: ABSENT: meningismus, tenderness, thyromegaly, tracheal deviation Respiratory exam: PRESENT: unlabored. ABSENT: tachypnea, wheezes Cardiovascular exam: ABSENT: tachycardia Vascular exam: PRESENT: normal capillary refill. ABSENT: pallor GI/Abdominal exam: PRESENT: soft. ABSENT: rebound, rigid, tenderness Rectal exam: PRESENT: deferred Extremities exam: ABSENT: clubbing Musculoskeletal exam: ABSENT: deformity Neurological exam: PRESENT: alert, awake, oriented to person, oriented to place, oriented to time, oriented to situation, CN II-XII grossly intact Psychiatric exam: ABSENT: agitated, anxious, depressed Focused psych exam: ABSENT: delusional Skin exam: ABSENT: cyanosis, erythema, jaundice Results Laboratory Results: 03/03/20 16:03 03/02/20 04:51 Impressions: Chest CT 02/28/20 11:14 IMPRESSION: Persistent right anterior pneumothorax with right upper and lower lobe airspace disease either atelectasis or pneumonia. Minimal left basilar atelectasis. Chest X-Ray 03/05/20 06:00 IMPRESSION: No pneumothorax. Assessment & Plan - Diagnosis (1) Spontaneous pneumothorax Is this a current diagnosis for this admission?: Yes - Time Anticipated Discharge Disposition: Home, Self Care Anticipated Discharge Timeframe: within 24 hours - Plan Summary Plan Summary: 45-year-old male status post tube thoracostomy for spontaneous pneumothorax. The patient is doing well today. His upper chest tube was removed. His x-ray shows no evidence of pneumothorax. The patient is okay for discharge home. Follow-up with [facility] in 7 to 10 days. No strenuous activity. If his chest pain or shortness of breath returns, he is to present to the emergency department immediately.
[2020-03-06 15:04] LABS: ANTINUCLEAR ANTIBODIES Negative (Negative)
== END 2020-03-05 12:25 | disposition home or self-care (01) | DRG 167 ==
LOC: ER 06:49 → EH 11:59 → 4S 15:05
PROVIDERS: ADMIT Internal Medicine; ATTEND Internal Medicine
PROC: 0W9930Z Drainage of Right Pleural Cavity with Drainage Device, Percutaneous Approach (ICD-10-PCS; 2020-02-28)
PROC: 0W9940Z Drainage of Right Pleural Cavity with Drainage Device, Percutaneous Endoscopic Approach (ICD-10-PCS; principal; 2020-02-29)
DX: J93.83 Other pneumothorax (principal); J98.11 Atelectasis; E11.65 Type 2 diabetes mellitus with hyperglycemia; E11.41 Type 2 diabetes mellitus with diabetic mononeuropathy; F17.210 Nicotine dependence, cigarettes, uncomplicated; F14.10 Cocaine abuse, uncomplicated; F12.10 Cannabis abuse, uncomplicated; Z71.6 Tobacco abuse counseling; Z20.828 Contact with and (suspected) exposure to other viral communicable diseases
CPT/HCPCS: 36415; 71045; 71046; 71260; 80048; 80053; 82010; 82803; 82962; 83036; 83735; 84100; 85025; 85610; 85730; 86038; 86235; 87635; 94799; 96361; 96374; 96375; 96376; 99285; C9803; J1650; J1815; J1885; J2250; J2270; J2405; J3010; J3490; J7030; J7120